=== PATIENT | female | born 1965 | race Caucasian/White ===

== ENCOUNTER → 2019-12-27 12:14 | Outpatient (CLI) | payer BC, SELFPAY ==
--- NOTE | ~2019-12-27 | MM_ITS ---
EXAMINATION: MM screening [facility] BI w juan HISTORY: Screening mammogram TECHNIQUE: Craniocaudal and mediolateral oblique 3-D tomosynthesis images were obtained and synthetic 2-D images were generated. CAD analysis was submitted and interpreted. COMPARISON: 09/06/2018, 08/10/2017, 08/05/2016 bilateral digital screening mammogram examinations BREAST PARENCHYMAL COMPOSITION: There are scattered areas of fibroglandular density. FINDINGS: There is no evidence of suspicious mass, calcification, or architectural distortion to sugg est malignancy in either breast. There has been no suspicious interval change. IMPRESSION: 1. No mammographic evidence of malignancy. 2. Recommend routine screening mammography in one year. BI-RADS Category 1: Negative Reviewed, dictated and finalized at location A.
== END ==
PROVIDERS: Visit Provider Family Medicine
DX: Z12.31 Encounter for screening mammogram for malignant neoplasm of breast (principal)
CPT/HCPCS: 77063; 77067

== ENCOUNTER 2020-11-06 12:55 | Emergency (ER) | payer BC, SELFPAY ==
[2020-11-06 13:15] VITALS: BP 118/66; PULSE 89; RESP 16; TEMP 37.1; O2SAT 97
--- NOTE | 2020-11-06 13:19 | ED.GENADULT ---
HPI - General Adult General Chief complaint: Upper Respiratory Infection Stated complaint: sore throat Time Seen by Provider: 11/06/20 13:15 Source: patient and RN notes reviewed Mode of arrival: ambulatory Limitations: no limitations History of Present Illness HPI narrative: 55-year-old female presents with complaints of burning of throat and white patches for 1 day. Denise reports symptoms started early Wednesday (11/05/20@03:00) morning and continues to increase. Tylenol last this morning at 07:00 with some relief. No high fevers, drooling, neck or throat swelling. Pain is bilateral. Hurts to swallow. Exacerbation factors consist of eating and drinking. No rhinorrhea or nasal congestion. No voice change. No nausea, vomiting, or abdominal pain. Tolerating liquids well. Denies dyspnea, difficulty swallowing, jaw pain, dental pain, facial pain, foreign body sensation, and rash. Remains active. The patient reports she have not been diagnosed with COVID-19. The patient reports she is not waiting for the results of a COVID-19 lab test. The patient reports she do not have chills, weakness, or fatigue. The patient reports she do not have a new or worsening cough or shortness of breath. Denies chest pain. The patient reports she do not have any loss of taste or smell or diarrhea. Denies recent traveling. Denies concerns for COVID-19 or exposures been home with limited outdoor exposure except for essential household needs, work, and return home. At this time, patient is not suspected of having COVID-19. Some parts of this dictation were generated by voice recognition software and may contain typographical and/or grammatical inaccuracies. Related Data Home Medications Medication Instructions Recorded Confirmed cetirizine 10 mg capsule 10 mg PO DAILY 12/05/19 07/26/20 Allergies Allergy/AdvReac Type Severity Reaction Status Date / Time lorcaserin [Belviq] Allergy Unknown intolerant Verified 09/24/20 11:39 Review of Systems Review of Systems: Narrative: CONSTITUTIONAL: Denies fever, chills, sweats. EYES: Denies visual changes, redness, discharge. ENT: Denies rhinorrhea, congestion, otalgia. Complains of burning of throat with white patches. CARDIOVASCULAR: Denies chest pain, palpitations, edema. RESPIRATORY: Denies dyspnea, wheezing, cough. GASTROINTESTINAL: Denies abdominal pain, nausea, vomiting, diarrhea. SKIN: Denies rash or itching. MUSCULOSKELETAL: Denies acute back pain, joint pain, or myalgia. NEUROLOGIC: Denies numbness or focal weakness. PSYCHIATRIC: Denies anxiety or depression. All systems reviewed & are unremarkable except as noted in HPI and below. [facility] Past Medical History Medical History (Updated 11/07/20 @ 00:00 by Nicole Thomas) Broken arm Surgical History Surgical History Hx of cholecystectomy Family History Family History Father Family history of chronic obstructive pulmonary disease Patient's father is , Onset Age: 63 Other Diabetes mellitus Family history of cardiovascular disease Family history of malignant neoplasm of skin Social History Social History (Updated 11/06/20 @ 13:55 by KELSIE Dalton) Smoking status: Former smoker Tobacco type: cigarettes Second hand tobacco smoke exposure: Yes Alcohol intake: current Substance use: never Substance use type: does not use Occupation/Education: occupation Gender identity (if verbalized by the patient): Female Sexual Orientation (if Verbalized by the Patient): Straight or Heterosexual Comments At time of signature, agree with nurse past medical, surgical, social, and family history. There is no relevant family history pertinent to the presenting complaint. Exam Narrative: Exam Narrative: GENERAL: This is a well-nourished, well-developed patient, in no ap
== END 2020-11-06 13:51 | disposition home or self-care (01) ==
PROVIDERS: Emergency Provider Nurse Practitioner Family; PCP Family Medicine
DX: B37.0 Candidal stomatitis (principal); J02.9 Acute pharyngitis, unspecified; Z87.891 Personal history of nicotine dependence
CPT/HCPCS: 87081; 87804; 87880; 99213; G0463

== ENCOUNTER → 2021-01-07 15:22 | Outpatient (CLI) | payer BC, SELFPAY ==
--- NOTE | ~2021-01-07 | MM_ITS ---
EXAMINATION: MM screening chucky BI w juan HISTORY: Screening mammogram TECHNIQUE: Craniocaudal and mediolateral oblique 3-D tomosynthesis images were obtained and synthetic 2-D images were generated. CAD analysis was submitted and interpreted. COMPARISON: 12/27/2019, 09/2018, 08/10/2017 bilateral digital screening mammogram examinations BREAST PARENCHYMAL COMPOSITION: There are scattered areas of fibroglandular density. FINDINGS: Scattered benign calcifications. There is no evidence of suspicious mass, calcification, or architectural distortion to suggest malignancy in either breast. There has been no suspicious interv al change. IMPRESSION: 1. No mammographic evidence of malignancy. 2. Recommend routine screening mammography in one year. BI-RADS Category 1: Negative Reviewed, dictated and finalized at location A.
== END ==
PROVIDERS: PCP Family Medicine; Visit Provider Family Medicine
DX: Z12.31 Encounter for screening mammogram for malignant neoplasm of breast (principal)
CPT/HCPCS: 77063; 77067

== ENCOUNTER → 2021-04-01 15:47 | Outpatient (CLI) | payer BC, SELFPAY ==
--- NOTE | ~2021-04-01 | US_ITS ---
EXAMINATION: US pelvic complete EXAM DATE: 04/01/2021 16:11 INDICATION: N83.209 - Unspecified ovarian cyst, unspecified side . TECHNIQUE: Pelvic transabdominal sonogram was performed. There are multiple grayscale and Doppler im ages available for interpretation. There is no prior study for comparison. FINDINGS: Uterus measures 7.8 x 2.9 x 4.1 cm, and is morphologically normal. Endometrial stripe vy sures 4 mm, within normal limits. There is no free pelvic fluid. Right adnexa: The ovary measures 2.3 x 1.4 x 1.7 cm and is morphologically normal. Ovarian vascular f low confirmed. Left adnexa: The ovary is not identified. There is no adnexal mass. IMPRESSION: 1. Unremarkable pelvic ultrasound exam. Reviewed, dictated and finalized at location A.
--- NOTE | ~2021-04-01 | XR_ITS ---
EXAMINATION: XR lumbar spine 6V w bending DATE: 04/01/2021 16:32 INDICATION: Low back pain TECHNIQUE: Anteroposterior, lateral in neutral, flexion and extension, and bilateral oblique views of the lumbar spine, and cone-down lateral view of the lumbosacral junction were obtained. COMPARISON: CT, 12/05/2014 FINDINGS: Vertebral body alignment is normal. There is no laxity with flexion or extension. There is moderate anterior loss of intervertebral disc space height at L1-2. There is mild loss of interverteb ral disc space height at L5-S1. The vertebral body heights are maintained. There is no fracture. Ther e is moderate bilateral facet osteoarthritis of the lower lumbar spine. Cholecystectomy clips are not ed. The bowel gas pattern is normal. IMPRESSION: 1. Moderate lumbar spondylosis without acute findings. Reviewed, dictated and finalized at location B.
== END ==
PROVIDERS: PCP Family Medicine; Visit Provider Family Medicine
DX: N83.209 Unspecified ovarian cyst, unspecified side (principal); M47.896 Other spondylosis, lumbar region
CPT/HCPCS: 72114; 76856

== ENCOUNTER → 2021-04-10 14:53 | Outpatient (CLI) | payer BC, SELFPAY ==
--- NOTE | ~2021-04-10 | CT_ITS ---
EXAMINATION: CT abdomen pelvis wo con DATE: 04/10/2021 15:08 INDICATION: Intermittent right lower quadrant pain TECHNIQUE: Computed tomography (CT) of the abdomen and pelvis was performed without intravenous contr ast. The dose-length product was 841.35 mGy-cm. Automated exposure control and iterative reconstructi on technique were employed. COMPARISON: CT dated 12/05/2014. FINDINGS: Lung bases are unremarkable. Heart size is normal. No significant pleural or pericardial ef fusion. No significant vascular abnormality. No lymphadenopathy. Status post cholecystectomy. The liver, spleen, pancreas, adrenal glands and kidneys are unremarkable. No hydronephrosis. The appe ndix is normal. Nonobstructive bowel gas pattern. No significant vascular abnormality. No lymphadenop athy. No free air or free fluid. No abnormal pelvic masses or fluid collections. No acute osseous abn ormality. IMPRESSION: 1. No acute abdominal abnormality. No findings to account for patient's symptoms. Reviewed, dictated and finalized at location A. IMPRESSION: 1. No acute abdominal abnormality. No findings to account for patient's symptom s.
== END ==
PROVIDERS: Visit Provider Family Medicine
DX: R10.9 Unspecified abdominal pain (principal)
CPT/HCPCS: 74176

== ENCOUNTER → 2021-09-01 12:44 | Outpatient (CLI) | payer BC, SELFPAY ==
--- NOTE | ~2021-09-01 | XR_ITS ---
EXAMINATION: XR hand RT min 3V DATE: 09/01/2021 13:26 INDICATION: Right hand pain. TECHNIQUE: 3 views of right hand were obtained. COMPARISON: None. FINDINGS: Bone alignment is normal. No fracture. Joint spaces are well maintained. IMPRESSION: 1. Normal right hand. Reviewed, dictated and finalized at location A. [facility] REPRESENTATIVE IMPRESSION: 1. Normal right hand.
== END ==
PROVIDERS: PCP Family Medicine; Visit Provider Physician Assistant
DX: M79.641 Pain in right hand (principal)
CPT/HCPCS: 73130

== ENCOUNTER 2021-09-30 12:45 | Outpatient (CLI) | payer BC, SELFPAY | END 2021-09-30 12:46 | disposition home or self-care (01) | LOC: ANHBWCAUD 12:46 | PROVIDERS: PCP Family Medicine; Visit Provider Family Medicine | DX: H90.3 Sensorineural hearing loss, bilateral (principal) | CPT/HCPCS: 92557; 92567 ==

== ENCOUNTER → 2022-06-01 14:05 | Outpatient (CLI) | payer BC, SELFPAY ==
--- NOTE | ~2022-06-01 | MM_ITS ---
EXAMINATION: MM screening [facility] BI w juan HISTORY: Screening mammogram TECHNIQUE: Craniocaudal and mediolateral oblique 3-D tomosynthesis images were obtained and synthetic 2-D images were generated. CAD analysis was submitted and interpreted. COMPARISON: 01/07/2021, 12/27/2019, 09/06/2018 BREAST PARENCHYMAL COMPOSITION: There are scattered areas of fibroglandular density. FINDINGS: Scattered benign-appearing calcifications are present. There is no suspicious mass, calcifi cation, or architectural distortion to suggest malignancy in either breast. There has been no suspici ous interval change. IMPRESSION: 1. No mammographic evidence of malignancy. 2. Recommend routine screening mammography in one year. BI-RADS Category 2: Benign finding(s). Reviewed, dictated and finalized at location A.
== END ==
PROVIDERS: PCP Family Medicine; Visit Provider Family Medicine
DX: Z12.31 Encounter for screening mammogram for malignant neoplasm of breast (principal)
CPT/HCPCS: 77063; 77067

== ENCOUNTER 2023-01-25 09:39 | Outpatient (CLI) | payer OTHER, SELFPAY ==
--- NOTE | 2023-01-25 09:50 | ECHO_ITS ---
Patient Info Name: Denise Spain Age: 57 years : 1965 Gender: Female Ht: 62 in Wt: 177 lbs BSA: 1.91 m2 HR: 73 bpm BP: 117 / 72 mmHg Technical Quality: Good Exam Date: 01/25/2023 9:57 AM Exam Location: [facility] Patient Status: Outpatient Admit Date: 01/25/2023 Staff Ordering Physician: Ron Nieto DO Yard Cleaner: Pavithra Espinoza RDCS Attending Provider: Ron Nieto DO Referring Physician: Gerson GARNICA; Exam Type: CA echo doppler color flow Study Info Indications R06.09 - Other forms of dyspnea Complete two-dimensional, color flow and Doppler transthoracic echocardiogram is performed. Summary 1. Complete two-dimensional, color flow and Doppler transthoracic echocardiogram is performed. 2. Left ventricular chamber dimension is normal. 3. Left ventricular systolic function is normal, estimated at 60-65%. 4. The left ventricular diastolic function is grade I diastolic dysfunction. 5. E/e' 11 is mildly elevated. 6. Global longitudinal strain is mildly abnormal at -16.7%. 7. No pulmonary hypertension, estimated pulmonary arterial systolic pressure is 30 mmHg. Left Ventricle E/e' 11 is mildly elevated. Global longitudinal strain is mildly abnormal at -16.7%. Left ventricular chamber dimension is normal. Left ventricular systolic function is normal, estimated at 60-65%. The left ventricular diastolic function is grade I diastolic dysfunction. Right Ventricle Right ventricular systolic function is normal and with normal TAPSE 2.0 cm. Right ventricular chamber dimension is normal. Left Atria Left atrial chamber dimension is normal. Right Atria Right atrial chamber dimension is normal. Aortic Valve The aortic valve is trileaflet. There is no aortic valve stenosis. There is trace aortic valve regurgitation. Pulmonic Valve There is no pulmonic regurgitation. Mitral Valve There is no mitral valve stenosis. There is no mitral valve regurgitation. Tricuspid Valve There is no tricuspid valve regurgitation. No pulmonary hypertension, estimated pulmonary arterial systolic pressure is 30 mmHg. Pericardium/Pleural There is no pericardial effusion. Inferior Vena Cava Normal inferior vena cava with >50% collapse upon inspiration consistent with normal right atrial pressure, 5 mmHg. Aorta The aortic root size at the sinus of Valsalva is normal. Left Ventricular Outflow Tract Name Value Normal LVOT 2D LVOT Diameter 1.9 cm LVOT Doppler LVOT Peak Gradient 9 mmHg LVOT Mean Gradient 5 mmHg LVOT VTI 32 cm LVOT VTI/AV VTI Ratio 0.8 LVOT Stroke Volume 86 ml LVOT CO 6.6 l/min LVOT CI 3.4 l/min/m2 Pulmonic Valve Name Value Normal RVOT Doppler
--- NOTE | 2023-01-29 12:21 | WPDHOLTEREM ---
Holter/Event Monitor Holter/Event Monitor Date of procedure: 01/25/23 Holter/Event Procedure: 48 Hr Holter Monitor Indications: Dyspnea Conclusion: 1. 48 hour holter monitor on 01/25/23. 2. Underlying rhythm is sinus rhythm. HR range 65-122 bpm; average HR 85 bpm. 3. There are 33 premature supraventricular complexes, 1 supraventricular couplet and 1 supraventricular triplet. No supraventricular tachycardia. 4. No premature ventricular complexes. No ventricular tachycardia. 5. No sinoatrial or atrioventricular blocks. No significant pauses greater than 2 seconds. 6. Patient reports symptoms of flutter, dizziness, shortness pressure high pulse which demonstrate sinus rhythm, HR range 77-107 bpm.
== END 2023-01-25 09:40 | disposition home or self-care (01) ==
LOC: ANHCARD 09:40
PROVIDERS: PCP Family Medicine; Visit Provider Family Medicine
DX: R00.0 Tachycardia, unspecified (principal); R06.09 Other forms of dyspnea
CPT/HCPCS: 93225; 93226; 93306

== ENCOUNTER → 2023-04-27 13:56 | Outpatient (CLI) | payer OTHER, SELFPAY ==
--- NOTE | ~2023-04-27 | XR_ITS ---
XR knee RT 3V, XR tibia fibula RT 2V 04/27/2023 14:12 (accession [id number]), 04/27/2023 14:11 (accession [id number]) Indication: Status post recent fall. Right knee pain. Procedure: 3 views right knee and 2 views of the right tibia/fibula Comparison: No prior studies for comparison. Findings: Mild osteoarthritis of the patellofemoral joint. No fracture, subluxation or dislocation. N o joint effusion. No foreign bodies. Impression: 1: No acute fracture. Reviewed, dictated and finalized at location A. Impression: 1: No acute fracture. Impression: 1: No acute fracture.
== END ==
PROVIDERS: PCP Family Medicine; Visit Provider Family Medicine
DX: S89.91XA Unspecified injury of right lower leg, initial encounter (principal)
CPT/HCPCS: 73562; 73590

== ENCOUNTER → 2023-05-10 10:59 | Outpatient (CLI) | payer OTHER, SELFPAY ==
--- NOTE | ~2023-05-10 | MR_ITS ---
EXAMINATION: MR knee RT wo con DATE: 05/10/2023 11:34 INDICATION: Unspecified internal derangement of the right knee TECHNIQUE: Magnetic resonance imaging (MRI) of the right knee was performed without intravenous contr ast. Sequences included coronal PD-weighted FSE, coronal PD-weighted FS FSE, sagittal T2-weighted FS E, sagittal PD-weighted FS FSE and axial PD weighted fat saturated FSE. COMPARISON: None. FINDINGS: Medial compartment: Medial meniscus is normal. Articular cartilage is normal. Lateral compartment: Lateral meniscus is normal. Articular cartilage is normal. Patellofemoral compartment: Deep chondral ulceration at the lateral side of the medial patellar facet extending to the apical rid ge. There is linear fluid signal consistent with chondral labral delamination extends 6 mm laterally along the bone chondral interface at the central aspect of the patellar apical ridge where there is m inimal underlying subarticular edema-like signal change. Chondral fissuring without degenerative subc hondral changes at the inferior aspect of the medial trochlea. Ligaments and tendons: Anterior and posterior cruciate ligaments are normal. The medial collateral ligament and fibular yolanda ateral ligament complex are normal. The extensor mechanism is normal. The visualized medial and later al hamstring tendons as well as the iliotibial band are normal. Fluid: Physiologic amount of fluid in the joint space. No loose osteochondral bodies identified. There is a 2.7 x 1.7 x 1.1 cm loculated fluid collection the deep subcutaneous fat overlying along the superfici al fascia of the anterolateral compartment likely representing a small posttraumatic hematoma/seroma given history of pain and bruising at the lateral lower leg post fall 3 1/2 weeks prior. Osseous/other: Normal marrow signal. No fracture or pathologic marrow replacing process. IMPRESSION: 1. 2.7 x 1.7 x 1.1 cm loculated subcutaneous fluid collection anterior to the neck of the proximal fi bula most likely representing a small post traumatic hematoma/seroma. 2. 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 Reviewed, dictated and finalized at location B. IMPRESSION: 1. 2.7 x 1.7 x 1.1 cm loculated subcutaneous fluid collection anterior to the n salina of the proximal fibula most likely representing a small post traumatic sheela jozef/seroma. 2. Mild patellofemoral osteoarthritis with regions of high-grade patellar and m oderate grade trochlear chondromalacia.
== END ==
PROVIDERS: PCP Family Medicine; Visit Provider Family Medicine
DX: M17.11 Unilateral primary osteoarthritis, right knee (principal)
CPT/HCPCS: 73721

== ENCOUNTER 2023-06-01 08:31 | Outpatient (CLI) | payer OTHER, SELFPAY ==
--- NOTE | 2023-06-21 11:28 | WPDSLEEPSTUD ---
Sleep Study Date of Study: 06/01/23 Ordering Provider: Ron Nieto DO Interpreting Physician: Adela Reyes MD Sleep Study Type: Polysomnogram Height: 1.57 m Weight: 79.379 kg Body Mass Index: 32.0 Neck Circumference (inches): 13.5 [place]: 10 Reason for Sleep Study Patient's chief complaint is insomnia and excessive daytime sleepiness. Her physician's chief complaint and reason for the study is memory loss. Sleep History Denise Spain is a 57-year-old female with history of difficulty getting to sleep and staying asleep. She is having a sleep study to determine the cause for insomnia. She takes trazodone and Lunesta to help get to sleep. These medications do not help as much as she would like. She rarely awakens from sleep short of breath. She occasionally awakens at night with heartburn, belching or coughing.??She frequently snores, occasionally snores loudly enough that others complain. She constantly has trouble sleeping when she has a cold. She never wakes suddenly gasping for breath during the night. She never sweats excessively at night. She rarely notices her heart pounding or beating irregularly during the night. She occasionally falls asleep during the day. She never falls asleep while driving. She frequently has daytime difficulties due to excessive sleepiness, she is a accounts payable payroll coordinator.. She never experiences loss of muscle tone with strong emotion. She never feels paralyzed on waking or falling asleep. She occasionally experiences vivid dreams upon waking or falling asleep. She never feels afraid of going to sleep. She occasionally has nightmares. She occasionally recalls her dreams. She never has thoughts racing through her mind. She never feels sad or depressed. She constantly feels anxiety or worry about things. She rarely notices parts of her body jerk. She occasionally kicks during the night. She rarely feels crawling or aching feelings in her legs. She rarely feels leg pain at night. She frequently grinds her teeth at night, never has morning jaw pain. She constantly feels bothered by pain during the day, occasionally is awakened by pain at night. She frequently wakes up feeling stiff in the morning with sore or achy muscles and pain in the neck and spine. She has memory problems, concentration problems fatigue and insomnia. She has had no significant change in her weight during the last year. ? Normal bedtime is around 9:00 p.m. to 10:00 p.m., taking a variable amount of time to fall asleep. She does not report a fixed wake-up time. She does not report to fix number of hours of sleep per night. She does not take naps in the day. A short nap might be refreshing. Habits:??Tobacco: Quit years ago Caffeine: 3 servings per day Alcohol: 3-4 servings per week. Recreational substances: none [facility] Past Medical History Medical History (Updated 06/21/23 @ 11:34 by Adela Reyes MD) Broken arm Insomnia, unspecified Lesion of nasal septum Low back pain Surgical History Surgical History Hx of cholecystectomy Family History Family History Father Family history of chronic obstructive pulmonary disease Other Diabetes mellitus Family history of cardiovascular disease Family history of malignant neoplasm of skin Social History Social History Smoking status: Never smoker Alcohol intake: current Drinks per week: 4 Substance use: never Substance use type: does not use Lack of Transportation: No Lack of Food: Never True Current Housing: I Have Housing Concerned About Future Housing: No Difficulty Paying Gas/Electric Bills: No Difficulty Paying for Meds: No Currently Unemployed: No Education: High School Diploma/GED Difficulty w/ Childcare or Family Care: No Occupation/Education: occupation
[2023-06-21 11:47] VITALS: BMI 32.0
== END 2023-06-02 07:53 | disposition home or self-care (01) ==
LOC: ANHCSM 08:32
PROVIDERS: PCP Family Medicine; Visit Provider Family Medicine
DX: G47.33 Obstructive sleep apnea (adult) (pediatric) (principal); G47.10 Hypersomnia, unspecified
CPT/HCPCS: 95810

== ENCOUNTER 2023-07-07 12:16 | Emergency (ER) | payer OTHER, SELFPAY ==
--- NOTE | ~2023-07-07 | XR_ITS ---
XR chest 2V DATE: 07/07/2023 12:48 INDICATION: Cough, shortness of breath TECHNIQUE: 2 views COMPARISON: 09/16/2018 PA and lateral chest FINDINGS: Normal heart size. No hilar or mediastinal enlargement. No pulmonary infiltrate or consolid ation, pleural effusion or pulmonary vascular congestion or pneumothorax is detected. Surgical clips, right upper quadrant, consistent with cholecystectomy. IMPRESSION: No active cardiopulmonary disease Reviewed, dictated and finalized at location B.
[2023-07-07 12:25] VITALS: BP 95/72; PULSE 99; RESP 16; TEMP 36.6; O2SAT 97
--- NOTE | 2023-07-07 12:36 | ED.URI ---
HPI - URI/Sore Throat General Chief Complaint: Upper Respiratory Infection Stated Complaint: Cough;Chest pain Time Seen by Provider: 07/07/23 12:26 Source: patient and RN notes reviewed History of Present Illness HPI Narrative: Patient is a 57-year-old female who presents to urgent care with complaints of 2-3 weeks of productive cough and postnasal drainage. Patient states she has also had some soreness in the back of her throat, more so on the left side. Patient states that she saw her PCP 2 weeks ago and was on steroids for 5 days. States that her symptoms did have mild improvement. Patient denied of any shortness of breath or chest pain until she choked on a meatball sandwich today. Patient states that she had a coughing fit and had difficulty catching her breath during that time and since then all symptoms have resolved. Patient is currently having no signs of distress, shortness of breath or chest discomfort. Patient has been using mucus relief [id number] and denies any fevers, nausea or vomiting. No other acute complaints. Patient is suggesting that she needs ?more medications for her symptoms?. No acute distress noted. Patient aware of the plan of care. Some parts of this dictation were generated by voice recognition software and may contain typographical and/or grammatical inaccuracies. Related Data Home Medications Medication Instructions Recorded Confirmed cetirizine 10 mg capsule (Zyrtec) 10 mg PO DAILY PRN Allergic 01/05/23 07/07/23 Symptoms Allergies Allergy/AdvReac Type Severity Reaction Status Date / Time lorcaserin [Belviq] Allergy Unknown intolerant Verified 07/07/23 12:40 Review of Systems Review of Systems: CONSTITUTIONAL: Denies fever, chills, or sweats. EYES: Denies visual changes, redness, or discharge. ENT: Denies rhinorrhea, congestion, otalgia. Reports of left-sided sore throat CARDIOVASCULAR: Denies chest pain, palpitations, or edema. RESPIRATORY: Reports of productive cough with episode of choking GASTROINTESTINAL: Denies abdominal pain, nausea, vomiting, or diarrhea. GENITOURINARY: Denies dysuria or hematuria. SKIN: Denies rash or itching. MUSCULOSKELETAL: Denies back pain, joint pain, or myalgia. NEUROLOGIC: Denies headache, numbness, or weakness. All other systems reviewed are negative, except as documented in HPI. [facility] Past Medical History Medical History Broken arm Insomnia, unspecified Lesion of nasal septum Low back pain Surgical History Surgical History Hx of cholecystectomy Family History Family History Father Family history of chronic obstructive pulmonary disease Other Diabetes mellitus Family history of cardiovascular disease Family history of malignant neoplasm of skin Social History Social History Smoking status: Never smoker Alcohol intake: current Drinks per week: 4 Substance use: never Substance use type: does not use Lack of Transportation: No Lack of Food: Never True Current Housing: I Have Housing Concerned About Future Housing: No Difficulty Paying Gas/Electric Bills: No Difficulty Paying for Meds: No Currently Unemployed: No Education: High School Diploma/GED Difficulty w/ Childcare or Family Care: No Occupation/Education: occupation Gender identity (if verbalized by the patient): Female Sexual Orientation (if Verbalized by the Patient): Straight or Heterosexual Comments At the time of my signature, I reviewed and agree with the nursing past medical, surgical, social, and family history. There is no relevant family history pertinent to the patient complaint. Exam Narrative: GENERAL: This is a well-nourished, well-developed patient, in no apparent distress. HEAD: normocep
== END 2023-07-07 13:10 | disposition home or self-care (01) ==
PROVIDERS: Emergency Provider Nurse Practitioner Family; PCP Family Medicine
DX: J06.9 Acute upper respiratory infection, unspecified (principal)
CPT/HCPCS: 71046; 99213; G0463

== ENCOUNTER → 2023-08-04 12:04 | Outpatient (CLI) | payer OTHER, SELFPAY ==
--- NOTE | ~2023-08-04 | XR_ITS ---
EXAMINATION: XR hip LT min 2V DATE: 08/04/2023 12:20 INDICATION: Left hip pain. TECHNIQUE: 2 views of left hip were obtained. COMPARISON: Left hip radiographs 01/14/2016 FINDINGS: Bone alignment is normal. No fracture. There is mild left hip osteoarthritis. IMPRESSION: 1. Mild left hip osteoarthritis. Reviewed, dictated and finalized at location E.
== END ==
PROVIDERS: PCP Family Medicine; Visit Provider Family Medicine
DX: M16.12 Unilateral primary osteoarthritis, left hip (principal)
CPT/HCPCS: 73502

== ENCOUNTER 2023-08-13 12:06 | Outpatient (CLI) | payer OTHER, SELFPAY ==
--- NOTE | ~2023-08-13 | XR_ITS ---
EXAMINATION: XR lumbar spine min 4V DATE: 08/13/2023 12:20 INDICATION: Low back pain TECHNIQUE: Anteroposterior, lateral, and bilateral oblique views of the lumbar spine, and cone-down l ateral view of the lumbosacral junction were obtained. COMPARISON: 04/01/2021 FINDINGS: Bone alignment is normal. There is no fracture. Again noted is moderate anterior loss of in tervertebral disc space height at L1-2. Small degenerative osteophytes project from the anterior endp lates of multiple vertebral bodies. There is mild to moderate facet joint osteoarthritis. Cholecystec jai clips are noted. A moderate volume of colonic stool is present. IMPRESSION: 1. Moderate lumbar spondylosis without acute findings or significant interval change. Reviewed, dictated and finalized at location B. CAL STRING MAKER IMPRESSION: 1. Moderate lumbar spondylosis without acute findings or significant interval ken white
== END 2023-08-13 12:07 | disposition home or self-care (01) ==
PROVIDERS: PCP Family Medicine; Visit Provider Family Medicine
DX: M54.50 Low back pain, unspecified (principal); M47.816 Spondylosis without myelopathy or radiculopathy, lumbar region
CPT/HCPCS: 72110

== ENCOUNTER 2023-12-03 08:24 | Outpatient (CLI) | payer OTHER, SELFPAY ==
[2023-12-03 18:56] LABS: Basophils Absolute Auto 0.1 K/mm3 (0.0-0.1); Basophils Percent Auto 0.7 % (0.2-1.2); Eosinophils Absolute Auto 0.1 K/mm3 (0-0.3); Eosinophils Percent Auto 1.1 % (0-4.4); Hematocrit 42.7 % (37.0-47.0); Hemoglobin 13.7 g/dL (12.0-15.0); Immature Granulocyte Absolute 0.02 K/mm3 (0.00-0.031); Immature Granulocyte Percent A 0.3 % (0-0.5); Lymphocytes Absolute Auto 1.99 K/mm3 (0.9-3.2); Lymphocytes Percent Auto 26.7 % (18.3-44.2); Mean Corpuscular HGB Conc 32.1 g/dl (32-36); Mean Corpuscular Hemoglobin 29.7 pg (26-34); Mean Corpuscular Volume 92.4 fl (80-100); Mean Platelet Volume 9.9 fl (7.4-10.4); Monocytes Absolute Auto 0.6 K/mm3 (0.1-0.6); Monocytes Percent Auto 7.4 % (2.6-8.5); Neutrophils Absolute Auto 4.8 K/mm3 (1.3-6.7); Neutrophils Percent Auto 63.8 % (45.5-73.1); Platelet Count Result 241 k/mm3 (150-375); Red Blood Count 4.62 M/mm3 (4.2-5.4); Red Cell Distribution Width 12.4 % (11.5-14.5); White Blood Count 7.5 K/mm3 (4.5-10.0)
[2023-12-03 19:25] LABS: Vitamin D 25 Hydroxy 29.2 ng/mL
[2023-12-03 19:27] LABS: Alanine Aminotransferase 29 U/L (6-35); Albumin Level 4.2 g/dL (3.5-5.1); Alkaline Phosphatase 82 U/L (38-126); Anion Gap 4 mmol/L (8-16); Aspartate Amino Transferase 37 U/L (14-36); Bilirubin,Total 0.7 mg/dL (0.2-1.3); Blood Urea Nitrogen 14 mg/dL (7-17); Calcium 9.3 mg/dL (8.4-10.2); Carbon Dioxide 29 mmol/L (22-30); Chloride 105 mmol/L (98-107); Cholesterol 217 mg/dL (0-200); Estimated Glomerular Filt Rate > 60; Glucose 99 mg/dL (65-110); HDL Direct 41 mg/dL; Lipase 72 U/L (23-300); Potassium 4.1 mmol/L (3.4-5.0); Sodium 138 mmol/L (137-145); Triglycerides 304 mg/dL (<150)
[2023-12-03 19:38] LABS: LDL Cholesterol Direct 127 mg/dL
[2023-12-03 19:44] LABS: Hemoglobin A1C 5.5 % (<5.7)
[2023-12-03 20:17] LABS: Vitamin B12 > 1000.0 pg/mL (239-931)
== END 2023-12-03 08:25 | disposition home or self-care (01) ==
LOC: ANHGOSHLAB 08:25
PROVIDERS: PCP Family Medicine; Visit Provider Emergency Medicine
DX: E66.9 Obesity, unspecified (principal); R10.12 Left upper quadrant pain; R53.83 Other fatigue; R42 Dizziness and giddiness
CPT/HCPCS: 36415; 80053; 80061; 82306; 82607; 83036; 83690; 84443; 85025

== ENCOUNTER 2024-01-28 15:05 | Outpatient (CLI) | payer OTHER, SELFPAY ==
[2024-01-28 19:22] LABS: Vitamin D 25 Hydroxy 32.1 ng/mL
== END 2024-01-28 15:06 | disposition home or self-care (01) ==
LOC: ANHGOSHLAB 15:07
PROVIDERS: PCP Family Medicine; Visit Provider Nurse Practitioner
DX: E55.9 Vitamin D deficiency, unspecified (principal)
CPT/HCPCS: 36415; 82306

== ENCOUNTER 2024-05-16 14:37 | Outpatient (CLI) | payer OTHER, SELFPAY ==
--- NOTE | 2024-05-16 14:43 | ECHO_ITS ---
Patient Info Name: Denise Spain Age: 58 years : 1965 Gender: Female Ht: 63 in Wt: 175 lbs BSA: 1.91 m2 HR: 80 bpm BP: 131 / 71 mmHg Heart Rhythm: Sinus Rhythm Technical Quality: Fair Exam Date: 05/16/2024 2:51 PM Exam Location: Echo Lab Patient Status: Outpatient Admit Date: 05/16/2024 Staff Ordering Physician: Ron Nieto DO Renewable Energy Broker: Malaika Harris RDCS Attending Provider: Ron Nieto DO Referring Physician: Gerson GARNICA; Exam Type: CA echo doppler color flow Study Info Indications R01.1 - Cardiac murmur, unspecified Complete two-dimensional, color flow and Doppler transthoracic echocardiogram is performed. Summary 1. Complete two-dimensional, color flow and Doppler transthoracic echocardiogram is performed. 2. Left ventricular chamber dimension is normal. 3. Left ventricular systolic function is normal, estimated at 60-65%. 4. The left ventricular diastolic function is grade I diastolic dysfunction. 5. E/e' 10 is mildly elevated. 6. There is mild aortic valve sclerosis. 7. There is mild aortic valve regurgitation. 8. No pulmonary hypertension, estimated pulmonary arterial systolic pressure is 25 mmHg. Left Ventricle E/e' 10 is mildly elevated. Left ventricular chamber dimension is normal. Left ventricular systolic function is normal, estimated at 60-65%. The left ventricular diastolic function is grade I diastolic dysfunction. Right Ventricle Right ventricular systolic function is normal and with normal TAPSE 2.1 cm. Right ventricular chamber dimension is normal. Left Atria Left atrial chamber dimension is normal. Right Atria Right atrial chamber dimension is normal. Aortic Valve The aortic valve is trileaflet. There is mild aortic valve sclerosis. There is no aortic valve stenosis. There is mild aortic valve regurgitation. Pulmonic Valve There is no pulmonic regurgitation. Mitral Valve There is no mitral valve stenosis. There is no mitral valve regurgitation. Tricuspid Valve There is no tricuspid valve regurgitation. No pulmonary hypertension, estimated pulmonary arterial systolic pressure is 25 mmHg. Pericardium/Pleural There is no pericardial effusion. Inferior Vena Cava Normal inferior vena cava with >50% collapse upon inspiration consistent with normal right atrial pressure, 5 mmHg. Aorta The aortic root size at the sinus of Valsalva is normal. Left Ventricular Outflow Tract Name Value Normal LVOT 2D LVOT Diameter 2.0 cm LVOT Doppler LVOT Peak Gradient 9 mmHg LVOT Mean Gradient 5 mmHg LVOT VTI 29 cm LVOT VTI/AV VTI Ratio 0.9 LVOT Stroke Volume 92 ml LVOT CO 6.0 l/min LVOT CI 3.1 l/min/m2 Pulmonic Valve Name Value Normal RVOT Doppler RVOT Peak Gradient
== END 2024-05-16 14:38 | disposition home or self-care (01) ==
PROVIDERS: PCP Family Medicine; Visit Provider Family Medicine
DX: I51.89 Other ill-defined heart diseases (principal); I35.8 Other nonrheumatic aortic valve disorders; I35.1 Nonrheumatic aortic (valve) insufficiency
CPT/HCPCS: 93306

== ENCOUNTER 2024-06-13 15:12 | Outpatient (CLI) | payer OTHER, SELFPAY ==
--- NOTE | ~2024-06-13 | MM_ITS ---
EXAMINATION: MM screening [facility] BI w juan HISTORY: Screening mammogram TECHNIQUE: Craniocaudal and mediolateral oblique 3-D tomosynthesis images were obtained and synthetic 2-D images were generated. CAD analysis was submitted and interpreted. COMPARISON: 06/01/2022, 01/07/2021, 12/27/2019 BREAST PARENCHYMAL COMPOSITION:Not Dense. There are scattered areas of fibroglandular density. FINDINGS: No suspicious mass, calcification, or architectural distortion are identified in either rama ast to suggest malignancy. There has been no suspicious interval change. IMPRESSION: No mammographic evidence of malignancy. Recommend routine screening mammography in one year. BI-RADS Category 1: Negative Reviewed, dictated and finalized at location .
== END 2024-06-13 15:13 | disposition home or self-care (01) ==
LOC: MICIMG 15:13
PROVIDERS: PCP Family Medicine; Visit Provider Nurse Practitioner
DX: Z12.31 Encounter for screening mammogram for malignant neoplasm of breast (principal)
CPT/HCPCS: 77063; 77067

== ENCOUNTER 2025-01-31 07:48 | Outpatient (CLI) | payer OTHER, SELFPAY ==
--- OUTSIDE RECORDS SUMMARY | 2025-01-31 07:51 | XMS_ITS | Clinical Summary ---
Author Organization [facility] Address [address] [place] [id number] Care Team Providers Care Cream Cheese Maker Name Role Phone Ron Nieto DO Primary Care Provider Allergies No known active allergies Medications PREMPRO 0.625-5 MG tablet Take 1 tablet by mouth daily. 1 Active traZODone 50 MG tablet TAKE 2 TABLETS BY MOUTH EVERY NIGHT AT BEDTIME FOR INSOMNIA 1 Active ondansetron (ZOFRAN-ODT) 4 MG disintegrating tablet Take 1 tablet (4 mg total) by mouth every 8 (eight) hours as needed for Nausea. 20 tablet 4 Active Active Problems Problem Noted Date Diagnosed Date Closed displaced fracture of fifth metatarsal bone of right foot 05/02/2021 Overview (05/26/2021): 04/28/2021 Assessment & Plan (08/03/2021 12:23 PM CDT): Increase activities as tolerated. Follow-up as needed. Assessment & Plan (06/26/2021 8:25 PM CDT): Slowly improving. Progressive increase range of motion and strengthening. Follow-up in 1 month for repeat evaluation and x-ray. Assessment & Plan (06/03/2021 4:05 PM CDT): Discontinue boot. May wear hard sole shoes. Return for follow up with repeat xray in 4 weeks. Assessment & Plan (05/26/2021 8:06 AM CDT): Patient still continues to complain of pain. Patient still not 1 month from fracture. Question whether or not she wants to have this fixed. Again, we discussed the fact that this is minimally displaced with 2 mm or less of step-off and gap. I do not see a need for surgical intervention at this time. However we did discuss the risks, benefits and alternatives including not limited to infection, neurovascular compromise, stiffness, persistent pain, need for further surgery, symptomatic hardware, nonunion, malunion, hardware failure, painful scar tissue and DVT and PE. All questions were answered. Follow-up in 2 weeks for repeat evaluation and x- ray Assessment & Plan (05/02/2021 8:30 AM CDT): We discussed the risks, benefits and alternatives. Step-off measures approximately 2 mm. By definition might consider surgical intervention. We discussed the risks including but not limited to infection, neurovascular compromise, stiffness, persistent pain, need for further surgery, hardware failure, symptomatic hardware, DVT and PE. At this point in time we will watch her for 2 more weeks. Follow-up in 2 weeks for repeat evaluation and x-ray. If there is further displacement consider open reduction internal fixation. Otherwise continue with conservative treatment. Fall on concrete 05/02/2021 Assessment & Plan (05/02/2021 8:31 AM CDT): 04/28/2021 rolled ankle over concrete with immediate pain, heard the fracture and followed up in the emergency room Metatarsal fracture 05/02/2021 Family History Medical History Relation Comments Valve Disease Father Cancer Paternal Aunt Liver Disease Paternal Uncle Relation Status Comments Father Paternal Aunt Other colon cancer Paternal Uncle Social History Tobacco Use Types Packs/Day Years Used Date Smoking Tobacco: Never Smokeless Tobacco: Never Alcohol Use Standard Drinks/Week Comments Yes 0 (1 standard drink = 0.6 oz pur e alcohol) socially Comments No Sex and Gender Information Value Date Recorded Sex Assigned at Not on file Legal Sex Female 5:43 PM CDT Gender Identity Not on file Sexual Orientation Not on file Last Filed Vital Signs Vital Sign Reading Time Taken Comments Blood Pressure 127/70 02/01/2024 9:00 AM CDT Pulse 88 02/01/2024 9:00 AM CDT Temperature 36.8 C (98.3 F) 02/01/2024 9:00 AM CDT Respiratory Rate 18 02/01/2024 9:00 AM CDT Oxygen Saturation 95% 02/01/2024 9:00 AM CDT Inhaled Oxygen Concentration - - Weight 81.6 kg (180 lb) 02/01/2024 7:05 AM CDT Height 157.5 cm (5' 2 ) 02/01/2024 7:05 AM CDT Body Mass Index 32.92 02/01/2024 7:05 AM CDT Plan of Treatment Health Maintenance Due Date Last Done Comments Cervical Cancer Screening Pa p Smear (Age 30 to 64) Every 3 Years 1965 Colorectal Cancer Screening Colonoscopy (10 Years) 1967 Annual Physical 1970 Hepatitis C 1985 DTaP, Tdap and Td Vaccines ( 1 - Tdap) 1986 Hepatitis B Vaccines (1 of 3 - 19+ 3-dose series) 1986 Cervical Cancer Screening Pa p with HPV Testing (Age 30 to 64) Every 5 Years 1997 Cervical Cancer Screening with HPV 1997 Mammogram Screening 2007 Pneumococcal Vaccine: 50+ Ye ars (1 of 1 - PCV) 2017 Zoster Vaccines (1 of 2) 2017 COVID-19 Vaccine (1 - 2023-2 5 season) 2024 Meningococcal B Vaccine Aged Out No l onger eligible based on patient's age to complete this topic Meningococcal Vaccine Aged Out No no eloisa eligible based on patient's age to complete this topic RSV Immunizations Under 20 Months Aged Out No longer eligible based on patient's age to complete this topic Care Teams Cream Cheese Maker Relationship Specialty Start Date End Date Ron Nieto DO [facility] [address] [address] PCP - General FAMILY PRACTICE 02/01/24
--- OUTSIDE RECORDS SUMMARY | 2025-01-31 07:51 | XMS_ITS | Referral Summary ---
Author Organization [facility] Address [address] [place] [address] Phone Care Team Providers Care Pharmacy Affairs Assistant Name Role Phone Ron Nieto Primary Care Provider [phone] Solo Loera MD Unavailable Allergies No known active allergies Medications Prempro 0.625-5 mg per tablet TK 1 T PO D 0 Active phentermine (ADIPEX-P) 37.5 mg tablet TK 1 T PO D 0 Active FLUoxetine (PROzac) 40 mg capsule Take 1 capsule (40 mg total) by mouth daily 3 Active traZODone (DESYREL) 50 mg tablet Take 2 tablets (100 mg total) by mouth nightly 1 Active eszopiclone (LUNESTA) 3 mg tablet Take 1 tablet (3 mg total) by mouth nightly 1 Active ibuprofen (ADVIL,MOTRIN) 400 mg tablet Take 1.5 tablets (600 mg total) by mouth 3 (three) times a day Active esomeprazole DR (NexIUM) 20 mg capsule Take 1 capsule (20 mg total) by mouth daily before breakfast Active Active Problems Problem Noted Date Diagnosed Date Hemorrhoid 03/26/2020 Social History Tobacco Use Types Packs/Day Years Used Date Smoking Tobacco: Never Personal Safety Answer Date Recorded Getting School Help Needed Not on file 10/09 Comments Unknown Sex and Gender Information Value Date Recorded Sex Assigned at Not on file Legal Sex Female 2:12 PM INTEGRATION MANAGER Gender Identity Not on file Sexual Orientation Not on file Last Filed Vital Signs Vital Sign Reading Time Taken Comments Blood Pressure 119/68 05/12/2023 1:21 PM CDT Pulse 75 05/12/2023 1:21 PM CDT Temperature 36.7 C (98.1 F) 03/26/2020 9:53 AM CDT Respiratory Rate - - Oxygen Saturation - - Inhaled Oxygen Concentration - - Weight 80.3 kg (177 lb) 05/12/2023 1:21 PM CDT Height 172.7 cm (5' 8 ) 05/12/2023 1:21 PM CDT Body Mass Index 26.91 05/12/2023 1:21 PM CDT Plan of Treatment Not on file Insurance [facility] CHOICE PLUS [employer] [facility] CHO[facility] PLUS Care Teams Pharmacy Affairs Assistant Relationship Specialty Start Date End Date Ron Nieto DO PCP - General Family Medicine 03/19/23 Solo Loera MD [address] [place] [address] Family Medicine 08/14/22
--- OUTSIDE RECORDS SUMMARY | 2025-01-31 07:51 | XMS_ITS | Clinical Summary ---
Author Organization [facility] Address [address] [place] [address] Phone Care Team Providers Care Software Development Project Manager Name Role Phone Ron Nieto Primary Care Provider [phone] Solo Loera MD Unavailable Allergies No known [...] Problem Noted Date Diagnosed Date Hemorrhoid 03/26/2020 Surgical History Surgery Date Site/Laterality Comments GALLBLADDER SURGERY 10/04/1994 - 10/03/1995 COLONOSCOPY 10/04/2017 - 10/03/2018 ARM SURGERY 10/04/1986 - 10/03/1987 Family History Medical History Relation Name Comments Memory loss Mother Relation Name Status Comments Mother Social History Tobacco Use Types Packs/Day Years Used Date Smoking Tobacco: Never Personal Safety Answer Date Recorded Getting School Help Needed Not on file 10/09 Comments Unknown Sex and Gender Information Value Date Recorded Sex Assigned at Not on file Legal Sex Female 2:12 PM OFFICE PROFESSIONALS Gender Identity Not on file Sexual Orientation Not on file Obstetrics History Last Filed Vital Signs Vital Sign Reading [...] 05/12/2023 1:21 PM CDT Plan of Treatment Health Maintenance Due Date Last Done Comments Breast Cancer Screening-Mammogram 1965 Cervical Cancer Screening 1965 Colon Cancer Screening-Colonoscopy 1967 Depression Screening 1967 Hepatitis C Screening 1967 DTaP/Tdap/Td Vaccine (1 - Tdap) 1978 Hepatitis B Screening 1985 Regular Well Visit/Exam 18-64 1985 Zoster Vaccine (1 of 2) 2017 Influenza Vaccine (Season Ended) 2025 Pneumococcal vaccine <65 Aged Out No longer eligible based on patient's age to complete this topic Insurance [facility] CHOICE PLUS [facility] HMO/PPO Address: [address] [address] [place] [address] [facility] [place] [facility] CHOICE PLUS [facility] HMO/PPO Address: [address] [address] [place] [address] Care Teams Software Development Project Manager Relationship Specialty Start Date End Date Ron Nieto DO PCP - General Family Medicine 03/19/23 Solo Loera MD [address] [place] [address] Family Medicine 08/14/22
[2025-01-31 08:48] LABS: Influenza A QL RT-PCR Negative (Negative); Influenza B QL RT-PCR Negative (Negative); RSV RNA, RT-PCR Negative (Negative); SARS-CoV-2 RNA PCR Negative (Negative)
== END 2025-01-31 07:49 | disposition home or self-care (01) ==
PROVIDERS: PCP Nurse Practitioner Family; Visit Provider Nurse Practitioner Family
DX: J02.9 Acute pharyngitis, unspecified (principal)
CPT/HCPCS: 87637

== ENCOUNTER 2025-02-08 14:11 | Outpatient (CLI) | payer OTHER, SELFPAY ==
--- NOTE | ~2025-02-08 | XR_ITS ---
EXAMINATION: XR chest 2V 02/08/2025 14:29 INDICATION: Cough PROCEDURE: 2 view chest COMPARISON: 09/26/2008 FINDINGS: The lungs are clear. The cardiomediastinal silhouette is within normal limits. There are no pleural effusions. There is no pneumothorax suspected. IMPRESSION: 1: NO ACUTE CARDIOPULMONARY DISEASE. Reviewed, dictated and finalized at location A.
--- NOTE | ~2025-02-08 | US_ITS ---
Thyroid ultrasound. Clinical History: Nontoxic goiter Findings: Real-time sonography of the thyroid gland was performed. The right lobe measures 2.6 x 0.9 x 1.0 cm. The left lobe measures 3.3 x 0.8 x 1.3 cm. The isthmus is 2 mm in AP diameter. Thyroid parenchyma is homogeneous. No nodule seen. Impression: Small homogeneous thyroid gland. No thyroid nodule.. Reviewed, dictated and finalized at location . Impression: Small homogeneous thyroid gland. No thyroid nodule..
== END 2025-02-08 14:12 | disposition home or self-care (01) ==
LOC: MICIMG 14:12
PROVIDERS: PCP Nurse Practitioner Family; Visit Provider Nurse Practitioner Family
DX: R05.9 Cough, unspecified (principal); E04.9 Nontoxic goiter, unspecified
CPT/HCPCS: 71046; 76536

== ENCOUNTER 2025-04-26 14:12 | Outpatient (CLI) | payer OTHER, SELFPAY ==
--- NOTE | ~2025-04-26 | DEXA_ITS ---
Bone Density Report Name: BLANCA RENTERIA Age: 59 Sex: Female Ethnicity: White Date of : 1965 Indication: postmenopausal; screening for osteoporosis; Referring Provider: BRIAN WHALEY Study: Bone densitometry was performed. Exam Date: April 26, 2025 Accession number: [id number] Bone Density: Region BMD T-score Z-score Classification AP Spine(L1-L4) 1.146 0.9 2.1 Normal Femoral Neck (Left) 0.949 0.9 2.1 Normal Total Hip (Left) 1.053 0.9 1.7 Normal Femoral Neck (Right) 0.948 0.9 2.1 Normal Total Hip (Right) 1.106 1.3 2.2 Normal Total Hip Mean 1.079 1.1 2.0 Normal World Health Organization criteria for BMD impression classify patients as: Normal (T-score at or above -1.0), Osteopenia (T-score between -1.0 and -2.5), or Osteoporosis (T-score at or below -2.5). 10-year Fracture Risk: FRAX not reported because: All T-scores for Spine Total, Hip Total, Femoral Neck at or above -1.0 Clinical Information Provided by Patient: Has used the following medications: HRT (i.e. estrogen/hormone therapy) Patient maximum height was 62 Menopause Age: 52 No regular weight bearing exercise Does not regularly consume dairy products Drinks caffeinated beverages Onset of menses at age 14 Number of children 1 Impression: The patient has normal bone mass. Discussion: LOW RISK OF FRACTURE; BONE DENSITY IS WELL ABOVE THE MINIMUM DESIRABLE LEVEL AND ABOVE AVERAGE FOR AGE AND SEX AT ALL SKELETAL SITES TESTED. This person's bone density is above expected limits for age and sex. This is rarely clinically significant, but should be pursued if there are significant musculoskeletal complaints. The patient should follow a healthful lifestyle (good nutrition with adequate calcium and vitamin D, and appropriate weight-bearing exercise). Follow-Up: Consider repeating this study in 5 years or sooner if there is some new clinical indication. Reported by: WINNIE on 04/26/2025 2:38:00 PM. Reviewed, dictated and finalized at location A.
== END 2025-04-26 14:13 | disposition home or self-care (01) ==
LOC: MICIMG 14:13
PROVIDERS: PCP Nurse Practitioner Family; Visit Provider Obstetrics & Gynecology Gynecology
DX: Z13.820 Encounter for screening for osteoporosis (principal)
CPT/HCPCS: 77080

== ENCOUNTER 2025-05-08 14:31 | Outpatient (CLI) | payer OTHER, SELFPAY ==
--- OUTSIDE RECORDS SUMMARY | 2025-05-08 14:35 | XMS_ITS | Clinical Summary ---
Author Organization [facility] Address [address] [place] [address] Phone Care Team Providers Care Leather Goods Sales Representative Name Role Phone Ron Nieto Primary Care Provider [phone] Solo Loera MD Unavailable Allergies No known [...] on file Legal Sex Female 2:12 PM GRINDER HARDBOARD Gender Identity Not on file Sexual Orientation [...] 1:21 PM CDT Height 172.7 cm (5' 8) 05/12/2023 1:21 PM CDT Body Mass Index [...] Vaccine (1 of 2) 2017 Influenza Vaccine (#1) 2025 Pneumococcal vaccine <65 Aged Out No longer eligible based on patient's age to complete this topic Insurance [facility] CHOICE PLUS [facility] [place] [facility] CHOICE PLUS Care Teams Leather Goods Sales Representative Relationship Specialty Start Date End Date Ron Nieto DO PCP - General Family Medicine 03/19/23 Solo Loera MD [address] [place] [address] Family Medicine 08/14/22
--- OUTSIDE RECORDS SUMMARY | 2025-05-08 14:35 | XMS_ITS | Referral Summary ---
Author Organization [facility] Address [address] [place] [address] Phone Care Team Providers Care Manager Assisted Living Name Role Phone Ron Nieto Primary Care Provider [phone] Solo Loera MD Unavailable Allergies No known [...] on file Legal Sex Female 2:12 PM NECK FITTER Gender Identity Not on file Sexual Orientation [...] Plan of Treatment Not on file Insurance [facility]PPO Address: [address] [address] [place] [address] [facility] CHOICE PLUS [facility] H[facility]/PPO Address: [address] [address] [place] [address] Care Teams Manager Assisted Living Relationship Specialty Start Date End Date Ron Nieto DO PCP - General Family Medicine 03/19/23 Solo Loera MD [address] [place] [address] Family Medicine 08/14/22
--- OUTSIDE RECORDS SUMMARY | 2025-05-08 14:35 | XMS_ITS | Clinical Summary ---
Author Organization [facility] Address [facility] [place] [address] Care Team Providers Care Applied Statistician Name Role Phone Tanvi Fernandezie TAY Primary Care Provider [phone] Allergies No known active allergies Medications PREMPRO 0.625-5 MG tablet Take 1 tablet by mouth daily. 04/19/2021 Active traZODone 50 MG tablet TAKE 2 TABLETS BY MOUTH EVERY NIGHT AT BEDTIME FOR INSOMNIA 04/17/2021 Active eszopiclone (LUNESTA) 1 MG tablet Take 1 tablet (1 mg total) by mouth nightly at bedtime. at bedtime. Active levocetirizine (XYZAL ALLERGY 24HR) 5 MG tablet Take 1 tablet (5 mg total) by mouth. Active SYMBICORT 160-4.5 MCG/ACT inhaler Inhale 2 puffs into the lungs every 12 (twelve) hours as needed (wheezing). 01/23/2025 Active propranolol (INDERAL) 20 MG tablet TAKE A MAXIMUM OF 3 TABLETS BY MOUTH PER DOSE UP TO FOUR TIMES DAILY NEEDED FOR ANXIETY 11/03/2024 Active sertraline (ZOLOFT) 100 MG tablet Take 1 tablet (100 mg total) by mouth daily. 01/23/2025 Active pantoprazole EC (PROTONIX) 40 MG tablet Take 1 tablet (40 mg total) by mouth daily. 30 tablet 02/27/2025 Active tiotropium (SPIRIVA) [address] 1 capsule (18 mcg total) into inhaler and inhale daily. 30 capsule 02/26/2025 Active azithromycin (ZITHROMAX) 500 mg tablet Take 1 tablet (500 mg total) by mouth daily. 7 tablet 02/26/2025 Active Active Problems Problem Noted Date Diagnosed Date Acute respiratory failure ([facility]) 02/02 Closed displaced fracture of fifth metatarsal bone [...] in the emergency room Metatarsal fracture 05/02/2021 Encounters Date Type Department Care Team Description 02/24/2025 11:45 PM CDT - 02/26/2025 12:34 PM CDT Hospital Encounter [facility] Med/Surg [address] [place] [address] Aaliyah Ramirez MD Ojulari, MD Jose Roberto Almazan Michael, MD Littlejohn, Cecile Caceres, MIKE Morris, Seble Almazan, INTERVENTION SPECIALIST URI (URI for weeks per patient, headache, coughing, ) Discharge Disposition: Home or Self Care (Routine Discharge) 02/24/2025 Travel from Last 3 Months Family History Medical History Relation Comments Valve Disease Father Cancer Paternal Aunt Liver Disease Paternal Uncle Relation Status Comments Father Paternal Aunt Other colon cancer Paternal Uncle Social History Tobacco Use Types Packs/Day Years Used Date Smoking Tobacco: Former Cigarettes 0.5 15.6 S tarted: 2009 Smokeless Tobacco: Never Tobacco Cessation:Counseling Given: Not Answered Alcohol Use Standard Drinks/Week Comments Yes 0 (1 standard drink = 0.6 oz pur e alcohol) socially [id number] Health Literacy Answer Date Recor ded How often do you need to hav e someone help you when you read instructions, pamphlets, or other written material from your doctor or pharmacy? Never 02/25/2025 [facility] Utilities Answer Date Recorded In the past 12 months has e [employer], gas, oil, or water [employer] [place] threatened to shut off services in your home? No 02/25/2025 Humiliation, Afraid, Rape, and Kick questionnair e Answer Date Recorded Within the last year, have y ou been afraid of your partner or ex-partner? No 02/25/2025 Within the last year, have y ou been humiliated or emotionally abused in other ways by your partner or ex-partner? No Within the last year, have y ou been kicked, hit, slapped, or otherwise physically hurt by your partner or ex-partner? No 02/25/2025 Within the last year, have y ou been raped or forced to have any kind of sexual activity by your partner or ex-partner? No 02/25/2025 Social Connection and Isolat ion Panel [NHANES] Answer Date Recorded In a typical week, how many times do you talk on the phone with family, friends, or neighbors? More than three times a week 02/25/2025 How often do you get togethe r with friends or relatives? Twice a week 02/25/2025 How often do you attend chur or bahai services? More than 4 times per year 02/25/2025 Do you belong to any clubs o r organizations such as mandaeism groups, unions, fraternal or athletic groups, or school groups? Yes 02/25/2025 How often do you attend meet ings of the clubs or organizations you belong to? More than 4 times per year 02/25/2025 Are you , , di vorced, , never , or living with a partner? 02/25/2025 AUDIT-C Answer Date Recorded Q1: How often do you have a drink containing alc ohol? 2-4 times a month 02/25/2025 Q2: How many drinks containi ng alcohol do you have on a typical day when you are drinking? 3 or 4 02/25/2025 Q3: How often do you have si x or more drinks on one occasion? Less than monthly 02/25/2025 Overall Financial Resource Strain (CARDIA) Answe r Date Recorded How hard is it for you to pa y for the very basics like food, housing, medical care, and heating? Not hard at all 02/25/2025 [facility] Occupat ional Health - Occupational Stress Questionnaire Answer Date Recorded Do you feel stress - tense, restless, nervous, or anxious, or unable to sleep at night because your mind is troubled all the time - these days? Not at all 02/25/2025 Exercise Vital Sign Answer Date Recorde d On average, how many days pe r week do you engage in moderate to strenuous exercise (like a brisk walk)? 2 days 02/25/2025 On average, how many minutes do you engage in exercise at this level? 30 min 02/25/2025 Hunger Vital Sign Answer Date Recorded Within the past 12 months, y ou worried that your food would run out before you got the money to buy more. Never true 02/26/20 Within the past 12 months, t he food you bought just didn't last and you didn't have money to get more. Never true 02/25/2025 PRAPARE - Transportation Answer Date Re corded In the past 12 months, has l ack of transportation kept you from medical appointments or from getting medications? No 02/02 In the past 12 months, has l ack of transportation kept you from meetings, work, or from getting things needed for daily living? No 02/25/2025 Housing Stability Vital Sign Answer Jeremi e Recorded In the last 12 months, was t here a time when you were not able to pay the mortgage or rent on time? Yes 02/25/2025 In the past 12 months, how m any times have you moved where you were living? 0 02/25/2025 At any time in the past 12 m [facility], were you homeless or living in a senior living (including now)? No 02/25/2025 Comments No Sex and Gender Information Value Date Recorded Sex Assigned at Female 02/24/2025 11:55 PM CDT Legal Sex Female 5:43 PM CDT Gender Identity Female 02/24/2025 11:55 PM CDT Sexual Orientation Straight 02/24/2025 11 :55 PM CDT Last Filed Vital Signs Vital Sign Reading Time Taken Comments Blood Pressure 115/53 02/26/2025 7:42 AM CDT Pulse 73 02/26/2025 7:42 AM CDT Temperature 36.1 C (97 F) 02/26/2025 7:42 AM CDT Respiratory Rate 14 02/26/2025 7:42 AM CDT Oxygen Saturation 99% 02/26/2025 8:08 AM CDT Inhaled Oxygen Concentration - - Weight 80.2 kg (176 lb 12.9 oz) 02/26/2025 3:44 AM CDT Height 157.5 cm (5' 2) 02/24/2025 11:5 0 PM CDT Body Mass Index 32.34 02/24/2025 11:50 PM CDT Plan of Treatment Health Maintenance [...] Vaccines (1 of 2) 2017 COVID-19 Vaccine (2023-2 5 season) 2024 Meningococcal B Vaccine Aged Out No l onger eligible based on patient's age to complete this topic Meningococcal Vaccine Aged Out No no eloisa eligible based on patient's age to complete this topic RSV Immunizations Under 20 Months Aged Out No longer eligible based on patient's age to complete this topic Procedures Procedure Name Priority Date/Time Associated Diagnosis Comments BASIC METABOLIC PANEL Routine 02/26/2025 5:19 AM CDT CBC W/DIFF AUTOMATED Routine 02/26/2025 5:[address] CHEST WO CON Today 02/25/2025 10:59 AM CDT RESPIRATORY PCR PANEL 2 Routine 02/25/2025 10:03 AM CDT HEMOGLOBIN, GLYCOSYLATED Routine 02/25/2025 9:17 AM CDT HEPATIC FUNCTION PANEL Routine 9:17 AM CDT TSH W/REFLEX Routine 02/25/2025 9:17 AM CDT TROPONIN, QUANT Routine 02/25/2025 9:17 AM CDT PROCALCITONIN (PCT) Routine 02/25/2025 9 :17 AM CDT CBC W/DIFF AUTOMATED STAT 02/25/2025 9:17 AM CDT BASIC METABOLIC PANEL STAT 02/25/2025 9:[address] HEAD WO CON STAT 02/25/2025 1:22 AM CDT XR CHEST PORTABLE STAT 02/25/2025 1:2 0 AM CDT ECG 12-LEAD Routine 02/25/2025 12:48 AM CDT CORONAVIRUS (COVID 19) STAT 12:38 AM CDT INFLUENZA A & B STAT 02/25/2025 12:38 AM CDT PRO-BRAIN NATRIURETIC PEPTIDE STAT 02/25/2025 12:38 AM CDT MAGNESIUM STAT 02/25/2025 12:38 AM CDT TROPONIN, QUANT STAT 02/25/2025 12:38 AM CDT COMPREHENSIVE METABOLIC PANEL STAT 02/25/2025 12:38 AM CDT CBC W/DIFF AUTOMATED STAT 02/25/2025 12:38 AM CDT from Last 3 Months Results * (ABNORMAL) BASIC METABOLIC PANEL (02/26/2025 5:19 AM CDT) Only the most recent of2 resultswithin the time period is included. GLUCOSE 94 70 - 99 MG/DL 02/26/2025 6:17 AM CDT [facility] BUN 17 7 - 18 MG/DL 02/26/2025 6:17 AM CDT [facility] CREATININE S/P/B 0.78 0.55 - 1.02 MG/DL 02/26/2025 6:17 AM CDT [facility] SODIUM S/P/B 143 136 - 145 MMOL/L 02/26/2025 6:17 AM CDT [facility] POTASSIUM S/P/B 4.0 3.5 - 5.1 MMOL/L 02/26/2025 6:17 AM CDT [facility] CHLORIDE S/P/B 106 100 - 108 MMOL/L 02/26/2025 6:17 AM CDT [facility] CO2 29.5 21 - 32 MMOL/L 02/26/2025 6:17 AM CDT [facility] CALCIUM S/P/B 8.5 8.5 - 10.1 MG/DL 02/26/2025 6:17 AM CDT [facility] ANION GAP 7.5 5 - 15 MMOL/L 02/26/2025 6:17 AM CDT [facility] BUN CREATININE RATIO 21.8 6 - 26 02/26/2025 6:17 AM CDT [facility] GFR ESTIMATE 89(L) >90 ML/MIN/1.7 3 M2 02/26/2025 6:17 AM CDT [facility] Comment: NOTE: eGFR is not calculated for patients <18 years of age. This is an estimated GFR calculation using the new CKD EPI creatinine equation without race and so does not require a correction factor for race. This estimated GFR should not be used for calculating drug doses. 02/26/2025 5:19 AM CDT us Norah Ellington MD LABORATORY Final Result [facility] [address] [place] [address], [place] [phone] * (ABNORMAL) CBC W/DIFF AUTOMATED (02/26/2025 5:19 AM CDT) Only the most recent of3 resultswithin the time period is included. WBC 10.25 4.4 - 11.0 x10'3/uL 02/26/2025 6:30 AM CDT [facility] RBC 3.97(L) 4.50 - 5.10 x10'6/uL 02/26/2025 6:30 AM T [facility] HGB 11.9(L) 12.3 - 15.3 G/DL 02/26/2025 6:30 AM T [facility] HCT 35.8(L) 35.9 - 44.6 % 02/26/2025 6:30 AM T [facility] MCV 90.2 80.0 - 96.0 FL 02/26/2025 6:30 AM T [facility] MCH 30.0 25.3 - 30.9 PG 02/26/2025 6:30 AM T [facility] MCHC 33.2 31.0 - 34.1 G/DL 02/26/2025 6:30 AM T [facility] RDW 13.3 12.4 - 15.1 % 02/26/2025 6:30 AM T [facility] PLT 204 151 - 353 x10'3/uL 02/26/2025 6:30 AM T [facility] MPV 9.8 9.6 - 12.0 FL 02/26/2025 6:30 AM T [facility] RBC MORPHOLOGY NORMAL 02/26/2025 6:30 AM T [facility] PLT MORPH. NORMAL 02/26/2025 6:30 AM T [facility] WBC MORPHOLOGY NORMAL 02/26/2025 6:30 AM T [facility] LYMPHOCYTES % 26.7 15.8 - 45.0 % 02/26/2025 6:31 AM CDT [facility] NEUTROPHILS % 64.8 42.1 - 71.9 % 02/26/2025 6:31 AM CDT [facility] MONOCYTES % 7.7 5.7 - 12.5 % 02/26/2025 6:31 AM CDT [facility] EOSINOPHILS 0.1 0.0 - 5.6 % 02/26/2025 6:31 AM CDT [facility] BASOPHILS 0.1 0.0 - 1.3 % 02/26/2025 6:31 AM CDT [facility] ABS. NEUTROPHILS 6.64(H) 1.40 - 6.00 x10'3/uL 02/26/2025 6:31 AM CDT [facility] IMMATURE GRANS % 0.6(H) 0.0 - 0.5 % 02/26/2025 6:31 AM CDT [facility] ABS. LYMPHOCYTES 2.74 0.80 - 4.70 x10'3/uL 02/26/2025 6:31 AM CDT [facility] 02/26/2025 5:19 AM CDT Norah Ellington MD LABORATORY Final Result [facility] [address] [place] [address], * CT CHEST WO CON (02/25/2025 10:59 AM CDT) Anatomical Region Laterality Modality Chest Computed Tomogra phy 02/25/2025 11:5 3 PM CDT Impressions 02/25/2025 11:58 PM CDT IMPRESSION: 1. Few foci of tree-in-bud nodularity in the right lower lobe with minimal groundglass opacity that could reflect infectious bronchiolitis in the appropriate clinical context. 2. Mild pulmonary emphysema. 3. Scattered tiny pulmonary nodules in both lungs measuring up to 4 mm. Per Fleischner guidelines, a follow-up chest CT could be considered in 12 months to assess for persistence/change. Referred By: Interpreted By: Lan Henriquez DO, 02/25/2025 11:53 PM Narrative 02/25/2025 11:58 PM CDT [facility] [address] [place] [id number] Examination: CT CHEST WO CON Exam time: 02/25/2025 10:58 AM Clinical history: Chronic obstructive pulmonary disease, cough, and shortness of breath. Concern for chronic obstructive pulmonary disease exacerbation. Comparison: Chest radiographs 02/25/2025, 10/10/2017, and 10/02/2016. Technique: Axial unenhanced CT of the chest was performed. Coronal and sagittal reformatted images were obtained and reviewed. A radiation dose lowering technique was used for this procedure, which may include, but is not limited to, dose reduction technique, automated exposure control, the use of iterative reconstruction, ALARA (As Low As Reasonably Achievable) techniques, and Image Gently techniques. Findings: The heart is normal in size without pericardial effusion. The thoracic aorta is normal in caliber. There is no mediastinal adenopathy or fluid collection. There is no internal mammary chain, axillary, or supraclavicular adenopathy. There is no pleural effusion or pneumothorax. There is mild pulmonary emphysema. There are a few foci of tree-in-bud nodularity in the right lower lobe with minimal groundglass opacity that could reflect infectious bronchiolitis in the appropriate clinical context. There are scattered tiny pulmonary nodules in both lungs, the largest of which measures approximately 4 mm. There is no focal pulmonary consolidation The gallbladder is surgically absent. A tiny splenunculus is noted. Moderate degenerative disc disease affects L1-2. Procedure Note Lan Henriquez DO - 02/26/2025 [facility] [address] [place] [id number] Examination: CT CHEST WO CON Exam time: 02/25/2025 10:58 AM Clinical history: Chronic obstructive pulmonary disease, cough, andshortness of breath. Concern for chronic obstructive pulmonary diseaseexacerbation. Comparison: Chest radiographs 02/25/2025, 10/10/2017, and 10/02/2016. Technique: Axial unenhanced CT of the chest was performed. Coronal andsagittal reformatted images were obtained and reviewed. A radiation doselowering technique was used for this procedure, which may include, but isnot limited to, dose reduction technique, automated exposure control, theuse of iterative reconstruction, ALARA (As Low As Reasonably Achievable)techniques, and Image Gently techniques. Findings: The heart is normal in size without pericardial effusion. The thoracicaorta is normal in caliber. There is no mediastinal adenopathy or fluidcollection. There is no internal mammary chain, axillary, orsupraclavicular adenopathy. There is no pleural effusion or pneumothorax. There is mild pulmonary emphysema. There are a few foci of njoa-nd-tmhpvhdrztifh in the right lower lobe with minimal groundglass opacity thatcould reflect infectious bronchiolitis in the appropriate clinicalcontext. There are scattered tiny pulmonary nodules in both lungs, thelargest of which measures approximately 4 mm. There is no focal pulmonaryconsolidation The gallbladder is surgically absent. A tiny splenunculus is noted. Moderate degenerative disc disease affects L1-2. IMPRESSION: 1. Few foci of tree-in-bud nodularity in the right lower lobe withminimal groundglass opacity that could reflect infectious bronchiolitis inthe appropriate clinical context. 2. Mild pulmonary emphysema. 3. Scattered tiny pulmonary nodules in both lungs measuring up to 4 mm.Per Fleischner guidelines, a follow-up chest CT could be considered in 12months to assess for persistence/change. Referred By: Interpreted By: Lan Henriquez DO, 02/25/2025 11:53 PM us Cecile Boo APNP CT Final Res ult * (ABNORMAL) RESPIRATORY PCR PANEL 2 (02/25/2025 10:03 AM CDT) ADENOVIRUS PCR (RESP) NOT DETECTED NOT DETECTED 02/25/2025 1:10 PM CDT [facility] CORONAVIRUS 229E PCR (RESP) NOT DETECTED NOT DETECTED 02/25/2025 1:10 PM CDT [facility] CORONAVIRUS HKU1 PCR (RESP) NOT DETECTED NOT DETECTED 02/25/2025 1:10 PM CDT [facility] CORONAVIRUS NL63 PCR (RESP) NOT DETECTED NOT DETECTED 02/25/2025 1:10 PM CDT [facility] CORONAVIRUS OC43 PCR (RESP) NOT DETECTED NOT DETECTED 02/25/2025 1:10 PM CDT [facility] METAPNEUMOVIRUS PCR (RESP) NOT DETECTED NOT DETECTED 02/25/2025 1:10 PM CDT [facility] RHINOVIRUS/ENTEROV IRUS PCR (RESP) NOT DETECTED NOT DETECTED 02/25/2025 1:10 PM CDT [facility] INFLUENZA A/H1-2009 PCR (RESP) DETECTED(A) NOT DETECTED 02/25/2025 1:10 PM CDT [facility] INFLUENZA B PCR (RESP) NOT DETECTED NOT DETECTED 02/25/2025 1:10 PM CDT [facility] PARAINFLUENZA 1 PCR (RESP) NOT DETECTED NOT DETECTED 02/25/2025 1:10 PM CDT [facility] PARAINFLUENZA 2 PCR (RESP) NOT DETECTED NOT DETECTED 02/25/2025 1:10 PM CDT [facility] PARAINFLUENZA 3 PCR (RESP) NOT DETECTED NOT DETECTED 02/25/2025 1:10 PM CDT [facility] PARAINFLUENZA 4 PCR (RESP) NOT DETECTED NOT DETECTED 02/25/2025 1:10 PM CDT [facility] RSV PCR (RESP) NOT DETECTED NOT DETECTED 02/25/2025 1:10 PM CDT [facility] B PARAPERTUSIS PCR (RESP) NOT DETECTED NOT DETECTED 02/25/2025 1:10 PM CDT [facility] BORDETELLA PERTUSSIS PCR (RESP) NOT DETECTED NOT DETECTED 02/25/2025 1:10 PM CDT [facility] CHLAMYDOPHILA PNEUMONIAE PCR (RESP) NOT DETECTED NOT DETECTED 02/25/2025 1:10 PM CDT [facility] MYCOPLASMA PNEUMONIAE PCR (RESP) NOT DETECTED NOT DETECTED 02/25/2025 1:10 PM CDT [facility] CORONAVIRUS SARS COV 2 PCR (RESP) NOT DETECTED NOT DETECTED 02/25/2025 1:10 PM CDT [facility] NASOPHARYNGEAL SWAB / Unknown 02/25/2025 10:03 AM CDT Cecile Boo APNP MICROBIOLOGY - GENERAL OR DERABLES Final Result [facility] [address] [place] [address], * PROCALCITONIN (PCT) (02/25/2025 9:17 AM CDT) PROCALCITONIN <0.05 0.00 - 0.25 NG/ML 02/25/2025 10:13 AM CDT [facility] Comment: PROCALCITONIN INTERPRETATION GUIDELINES LOWER RESPIRATORY TRACT INFECTIONS (LRTI): USE OF PCT IN INPATIENT OR EMERGENCY SITUATION INITIATION OF ANTIBIOTICS PCT VALUE INTERPRETATION <0.10 NG/ML ANTIBIOTIC THERAPY STRONGLY DISCOURAGED. 0.10-0.25 NG/ML ANTIBIOTIC THERAPY DISCOURAGED. 0.26-0.50 NG/ML ANTIBIOTIC THERAPY ENCOURAGED. >0.50 NG/ML ANTIBIOTIC THERAPY STRONGLY ENCOURAGED. DISCONTINUE ANTIBIOTICS PCT LESS THAN OR EQUAL TO 0.25 NG/ML OR DELTA PCT >80 PERCENT DELTA PCT= PCT(PEAK)-PCT(CURRENT)/PCT(PEAK)X100% STUDIES HAVE EVALUATED PCT PROTOCOLS IN THESE PATIENTS AND FOUND THAT FOR PATIENTS WHO ARE CLINICALLY STABLE AND ARE TREATED AT THE ED OR ARE HOSPITALIZED, THE INITIATION OF ANTIBIOTIC THERAPY SHOULD BE BASED ON CLINICAL GROUNDS AND A PCT VALUE OF GREATER THAN OR EQUAL TO 0.26 NG/ML. IF PCT REMAINS LOWER, ANTIBIOTICS CAN BE WITHHELD AND PATIENTS CAN BE REASSESSED CLINICALLY WITHOUT SAFETY CONCERNS. IF PATIENTS ARE CLINICALLY STABLE, AN ALTERNATIVE DIAGNOSIS SHOULD BE CONSIDERED. IF PATIENTS ARE UNSTABLE, THEN ANTIBIOTICS MAY BE CONSIDERED. IF PATIENTS DO NOT IMPROVE IN THE SHORT FOLLOW UP PERIOD OF 6 TO 12 HOURS, CLINICAL RE-EVALUATION AND RE-MEASUREMENT OF PCT IS RECOMMENDED. 02/25/2025 9:17 AM CDT Cecile Morris Boo [facility] Final Res ult Performing Organization Address [facility]/ZIP Co de Phone Number [facility] [address] [place] [address], [place] [phone] * TSH W/REFLEX (02/25/2025 9:17 AM CDT) TSH 0.414 0.358 - 3.74 uIU/ML 02/25/2025 10:36 AM CDT [facility] Comment: HIGH DOSES OF BIOTIN MAY INTERFERE WITH THIS TEST RESULT. CORRELATION TO CLINICAL HISTORY AND PRESENTATION RECOMMENDED. FREE T4 NOT INDICATED 02/25/2025 9:17 AM CDT Cecile Morris Boo [facility] Final Res ult Performing Organization Address [facility]/ZIP Co de Phone Number [facility] [address] [place] [address], [place] [phone] * HEMOGLOBIN, GLYCOSYLATED (02/25/2025 9:17 AM CDT) HGB A1C 5.5 <5.7 % 02/25/2025 12:45 PM CDT [facility] Comment: INCREASED RISK OF DIABETES <5.7% NON-DIABETES 5.7-6.4% INCREASED RISK FOR FUTURE DIABETES > OR = 6.5 CONSISTENT WITH DIABETES STANDARDS OF MEDICAL CARE IN DIABETES-2010 DIABETES CARE, 33(SUPP 1): S1-S61,2010 ESTIMATED AVG GLUCOSE 111 mg/dL 02/25/2025 12:45 PM CDT [facility] 02/25/2025 9:17 AM CDT Cecile Boo APNP LABORATORY Final Res ult [facility] [address] [place] [address], * (ABNORMAL) HEPATIC FUNCTION PANEL (02/25/2025 9:17 AM CDT) TOTAL PROTEIN S/P/B 7.5 6.4 - 8.2 G/DL 02/25/2025 12:34 PM T [facility] ALBUMIN S/P/B 3.8 3.4 - 5.0 G/DL 02/25/2025 12:34 PM T [facility] BILIRUBIN TOTAL S/P/B 0.3 0.2 - 1.2 MG/DL 02/25/2025 12:34 PM T [facility] BILIRUBIN DIRECT S/P/B <0.1 0.0 - 0.20 MG/DL 02/25/2025 12:34 PM T [facility] BILIRUBIN INDIRECT S/P/B 0.3 0.0 - 0.9 MG/DL 02/25/2025 12:34 PM T [facility] ALKALINE PHOSPHATASE S/P/B 92 50 - 136 U/L 02/25/2025 12:34 PM T [facility] AST 52(H) 15 - 37 U/L 02/25/2025 12:34 PM T [facility] ALT 48 14 - 55 U/L 02/25/2025 12:34 PM CDT [facility] A/G RATIO 1.0 1.0 - 2.0 RATIO 02/25/2025 12:34 PM CDT [facility] 02/25/2025 9:17 AM CDT Cecile Boo [facility] Final Res ult Performing Organization Address City/[facility]/ZIP Co de Phone Number [facility] [address] [place] [address], [place] [phone] * TROPONIN, QUANT (02/25/2025 9:17 AM CDT) Only the most recent of2 resultswithin the time period is included. TROPONIN I HIGH SENSITIVITY 11 0 - 50 ng/L 02/25/2025 9:57 AM CDT [facility] Comment: HIGH DOSES OF BIOTIN, TROPONIN-SPECIFIC AUTOANTIBODIES, AND ANTIBODY THERAPY CONTAINING HAMA MAY INTERFERE WITH THIS TEST RESULT. CORRELATION TO CLINICAL HISTORY AND PRESENTATION RECOMMENDED. 02/25/2025 9:17 AM CDT Cecile Boo [facility] Final Res ult Performing Organization Address [facility] Co de Phone Number [facility] [address] [place] [address], [place] [phone] * CT HEAD WO CON (02/25/2025 1:22 AM CDT) Anatomical Region Laterality Modality Head Computed Tomogra phy 02/25/2025 1:34 AM CDT Impressions 02/25/2025 1:36 AM CDT IMPRESSION: 1. No acute intracranial abnormality. Referred By: Interpreted By: Veronica Lamar MD, 02/25/2025 1:34 AM Narrative 02/25/2025 1:36 AM CDT [facility] [address] [place] [address] EXAMINATION: CT Head without Contrast, Axial Imaging with 2-D Coronal and Sagittal Reconstruction. This CT exam was performed using one or more of the following dose reduction techniques: automated exposure control, adjustment of the mA and/or kV according to patient size, the use of iterative reconstruction technique, use of ALARA (As Low As Reasonably Achievable) and/or use of Image Gently techniques. INDICATION: Left headache after coughing COMPARISON: None. FINDINGS: No mass, midline shift, intracranial hemorrhage, areas of acute macrovascular ischemia, or acute osseous abnormality. No extra-axial fluid collections. Ventricles and sulci are normal for age. Normal perry-white differentiation is maintained. Visualized orbits are unremarkable. No significant disease in the partially visualized paranasal sinuses or mastoid air cells. Procedure Note Veronica Lamar MD - 02/25/2025 [facility] [address] [place] [address] EXAMINATION: CT Head without Contrast, Axial Imaging with 2-D Coronal andSagittal Reconstruction. This CT exam was performed using one or more of the following dosereduction techniques: automated exposure control, adjustment of the mAand/or kV according to patient size, the use of iterative reconstructiontechnique, use of ALARA (As Low As Reasonably Achievable) and/or use ofImage Gently techniques. INDICATION: Left headache after coughing COMPARISON: None. FINDINGS: No mass, midline shift, intracranial hemorrhage, areas of acutemacrovascular ischemia, or acute osseous abnormality. No extra-axial fluidcollections. Ventricles and sulci are normal for age. Normal perry-whitedifferentiation is maintained. Visualized orbits are unremarkable. Nosignificant disease in the partially visualized paranasal sinuses ormastoid air cells. IMPRESSION: 1. No acute intracranial abnormality. Referred By: Interpreted By: Veronica Lamar MD, 02/25/2025 1:34 AM Aaliyah Ramirez MD CT Final Result * XR CHEST PORTABLE (02/25/2025 1:20 AM CDT) Anatomical Region Laterality Modality Chest Radiographic Cary ging 02/25/2025 1:36 AM CDT Impressions 02/25/2025 1:38 AM CDT IMPRESSION: 1. No significant change, and no acute pulmonary disease. Referred By: Interpreted By: Veronica Lamar MD, 02/25/2025 1:36 AM Narrative 02/25/2025 1:38 AM CDT [facility] [address] [place] [address] EXAMINATION: XR Portable CXR, 1 View INDICATION: Wheezing b/l, SOB, cough COMPARISON: PA and lateral chest x-ray 10/10/2017. FINDINGS: The cardiomediastinal silhouette is within normal limits. Pulmonary vascularity is normal. No acute infiltrate, consolidation, pneumothorax, or pleural effusion. No acute osseous abnormality. Procedure Note Veronica Lamar MD - 02/25/2025 [facility] [address] [place] [address] EXAMINATION: XR Portable CXR, 1 View INDICATION: Wheezing b/l, SOB, cough COMPARISON: PA and lateral chest x-ray 10/10/2017. FINDINGS: The cardiomediastinal silhouette is within normal limits. Pulmonaryvascularity is normal. No acute infiltrate, consolidation, pneumothorax,or pleural effusion. No acute osseous abnormality. IMPRESSION: 1. No significant change, and no acute pulmonary disease. Referred By: Interpreted By: Veronica Lamar MD, 02/25/2025 1:36 AM us Aaliyah Ramirez MD GENERAL IMAGING Final Result * ECG 12 lead (02/25/2025 12:48 AM CDT) 02/25/2025 12:4 8 AM CDT Narrative [facility] ([facility]) RAD - 02/25/2025 8:50 AM CDT [facility] Test Date: 2025-02-25 Pat Name: BLANCA RENTERIA Department: 85 Room: 124 Gender: Female Teletype Operator: : [id number] Requested By: AALIYAH RAMIREZ Order Number: [id number] Reading MD: Mehran Jones Measurements Intervals [place] Rate: 64 P: 46 ME: 137 QRS: 76 QRSD: 94 T: 63 QT: 419 QTc: 434 Interpretive Statements SINUS RHYTHM POSSIBLE RIGHT VENTRICULAR CONDUCTION DELAY [RSR (QR) IN V1/V2] MODERATE ST DEPRESSION [0.05+ mV ST DEPRESSION] No previous ECG available for comparison Procedure Note Mehran Jones MD - 02/25/2025 [facility] Test Date: 2025-02-25 Pat Name: BLANCA RENTERIA Department: 85 Room: 124 Gender: Female Teletype Operator: : [id number] Requested By: AALIYAH RAMIREZ Order Number: [id number] Reading : Mehran Jones Measurements Intervals [place] Rate: 64 P: 46 ME: 137 QRS: 76 QRSD: 94 T: 63 QT: 419 QTc: 434 Interpretive Statements SINUS RHYTHM POSSIBLE RIGHT VENTRICULAR CONDUCTION DELAY [RSR (QR) IN V1/V2] MODERATE ST DEPRESSION [0.05+ mV ST DEPRESSION] No previous ECG available for comparison us Aaliyah Ramirez MD ECG ORDERABLES Final Result [facility] ([facility]) RAD * CORONAVIRUS (COVID-19) MOLECULAR (02/25/2025 12:38 AM CDT) CORONAVIRUS SARS COV 2 RNA NEGATIVE NEGATIVE 02/25/2025 1:30 AM CDT [facility] Comment: NEGATIVE RESULTS DO NOT RULE OUT COVID 19 AND SHOULD NOT BE USED THE SOLE BASIS FOR TREATMENT OR PATIENT MANAGEMENT DECISIONS, INCLUDING INFECTION CONTROL DECISIONS. NEGATIVE RESULTS SHOULD BE CONSIDERED IN THE CONTEXT OF A PATIENT'S RECENT EXPOSURES, HISTORY AND THE PRESENCE OF CLINICAL SIGNS AND SYMPTOMS CONSISTENT WITH COVID 19. THE ID NOW COVID-19 2.0 TEST HAS BEEN AUTHORIZED BY THE FDA UNDER EAU FOR USE BY AUTHORIZED LABORATORIES. PERFORMED BY NUCLEIC ACID AMPLIFICATION FOR MOLECULAR QUALITATIVE DETECTION OF SARS-COV-2. SPECIMEN TYPE NASAL 02/25/2025 12:38 AM CDT [facility] NASOPHARYNGEAL SWAB / Unknown 02/25/2025 12:38 AM CDT us Aaliyah Ramirez MD MICROBIOLOGY - GENERAL ORDERAB LES Final Result [facility] [address] [place] [address], * (ABNORMAL) PRO-BRAIN NATRIURETIC PEPTIDE (02/25/2025 12:38 AM CDT) PRO-B TYPE NATRIURETIC PEPTIDE 131(H) <125 PG/ML 02/25/2025 1:16 AM CDT [facility] Comment: CUT POINTS ESTABLISHED BY INTERNATIONAL COLL[employer]ATIVE ON NT PROBNP (ICON) STUDY (2006). AGE INDEPENDENT: <300 PG/ML HAS A 99% NEGATIVE PREDICTIVE VALUE FOR EXCLUDING ACUTE CHF <50 YEARS: >450 PG/ML IS CONSISTENT WITH ACUTE CHF 50-75 YEARS: >900 PG/ML IS CONSISTENT WITH ACUTE CHF >75 YEARS: >1800 PG/ML IS CONSISTENT WITH ACUTE CHF IN PATIENTS WITH RENAL INSUFFICIENCY (GFR <60), >1200 PG/ML YIELDS A DIAGNOSTIC SENSITIVITY AND SPECIFICITY OF 89% AND 72% FOR ACUTE CHF. 02/25/2025 12:3 8 AM CDT us Aaliyah Ramirez MD LABORATORY Final Result [facility] [address] [place] [address], [place] [phone] * INFLUENZA A & B (02/25/2025 12:38 AM CDT) SPECIMEN TYPE NASOPHARYNX 02/25/2025 1:26 AM CDT [facility] INFLUENZA A NEGATIVE NEGATIVE 02/25/2025 1:26 AM CDT [facility] INFLUENZA B NEGATIVE NEGATIVE 02/25/2025 1:26 AM CDT [facility] NASAL NASOPHARYNGEAL SWAB / Unknown 02/25/2025 12:38 AM CDT us Aaliyah Ramirez MD MICROBIOLOGY - GENERAL ORDERAB LES Final Result [facility] [address] [place] [address], [place] [phone] * (ABNORMAL) COMPREHENSIVE METABOLIC PANEL (02/25/2025 12:38 AM CDT) GLUCOSE 139(H) 70 - 99 MG/DL 02/25/2025 1:16 AM CDT [facility] BUN 18 7 - 18 MG/DL 02/25/2025 1:16 AM CDT [facility] CREATININE S/P/B 0.95 0.55 - 1.02 MG/DL 02/25/2025 1:16 AM CDT [facility] SODIUM S/P/B 140 136 - 145 MMOL/L 02/25/2025 1:16 AM CDT [facility] POTASSIUM S/P/B 4.2 3.5 - 5.1 MMOL/L 02/25/2025 1:16 AM CDT [facility] CHLORIDE S/P/B 103 100 - 108 MMOL/L 02/25/2025 1:16 AM [facility] CO2 29.1 21 - 32 MMOL/L 02/25/2025 1:16 AM [facility] CALCIUM S/P/B 9.2 8.5 - 10.1 MG/DL 02/25/2025 1:16 AM [facility] BILIRUBIN TOTAL S/P/B 0.4 0.2 - 1.2 MG/DL 02/25/2025 1:16 AM [facility] TOTAL PROTEIN S/P/B 7.3 6.4 - 8.2 G/DL 02/25/2025 1:16 AM [facility] ALBUMIN S/P/B 3.7 3.4 - 5.0 G/DL 02/25/2025 1:16 AM [facility] AST 57(H) 15 - 37 U/L 02/25/2025 1:16 AM [facility] ALT 56(H) 14 - 55 U/L 02/25/2025 1:16 AM [facility] ALKALINE PHOSPHATASE S/P/B 92 50 - 136 U/L 02/25/2025 1:16 AM [facility] ANION GAP 7.9 5 - 15 MMOL/L 02/25/2025 1:16 AM [facility] BUN CREATININE RATIO 18.9 6 - 26 02/25/2025 1:16 AM [facility] A/G RATIO 1.0 1.0 - 2.0 RATIO 02/25/2025 1:16 AM [facility] GFR ESTIMATE 70(L) >90 ML/MIN/1.7 3 M2 02/25/2025 1:16 AM [facility] Comment: NOTE: eGFR is not calculated for patients <18 years of age. This is an estimated GFR calculation using the new CKD EPI creatinine equation without race and so does not require a correction factor for race. This estimated GFR should not be used for calculating drug doses. 02/25/2025 12:3 8 AM CDT us Aaliyah Ramirez MD LABORATORY Final Result Performing Organization Address [facility]/ZIP Co de Phone Number [facility] [address] [place] [address], [place] [phone] * MAGNESIUM (02/25/2025 12:38 AM CDT) MAGNESIUM 1.9 1.8 - 2.4 MG/DL 02/25/2025 1:16 AM CDT [facility] 02/25/2025 12:3 8 AM CDT Aaliyah Ramirez MD LABORATORY Final Result Performing Organization Address [facility] de Phone Number [facility] [address] [place] [address], [place] [phone] from Last 3 Months Insurance UMR Advance Directives * Full Code (Latest Code Status on File) Date Activated Date Inactivated Comments 02/25/2025 12:00 PM 02/26/2025 2:34 PM Care Teams Applied Statistician Relationship Specialty Start Date End Date Riri Fernandez NP [address] [facility] [address] [place] [address] [phone] PCP - General Nurse Practitioner Family 02/24/25
--- NOTE | 2025-05-08 16:42 | WPDPFTINT ---
PFT Procedure Performed PFT Procedure Performed Spirometry with Pre/Post Bronchodilator Plethysmography (Lung Vol) Diffusing Cap (DLCO) Flow Vol Loop PFT Interpretation This is a pulmonary function test with pre and post-bronchodilator spirometry, plethysmography and diffusing capacity. The test was performed and results interpreted in accordance with the 2019 and 2005 ATS/ERS Task Force guidelines respectively using the Global Lung Function Initiative-2012 reference equations. Patient demonstrated good effort and cooperation. Reproducibility criteria were met. The quality of the pre bronchodilator spirometry maneuver was Grade A and post bronchodilator spirometry maneuver was Grade A. Findings: Spirometry: The contour the inspiratory and expiratory flow tracing are normal. The pre bronchodilator FVC is 2.82 L, 94% predicted. The pre bronchodilator FEV1 is 2.27 L, 95% predicted. The pre bronchodilator FEV1: FVC ratio is 81%. The post bronchodilator FVC is 2.58 L, representing an 8% decrease. The post bronchodilator FEV1 is 2.04 L, representing a 10% decrease. The post bronchodilator FEV1: FVC ratio 79%. Plethysmography: The total lung capacity is 4.66 L, 98% predicted. The functional residual capacity is 2.29 L, 86% predicted. The residual volume is 1.84 L, 101% predicted. Diffusing capacity: The diffusing capacity unadjusted for hemoglobin and carboxyhemoglobin is 18.4, 87% predicted. The diffusing capacity adjusted for alveolar volume is 4.71, 103% predicted. Impression: The spirometry is normal without evidence of an obstructive abnormality. There is no significant improvement after inhaling a single dose of albuterol. The lung volumes are normal. The diffusing capacity is normal. There are no prior studies for comparison
== END 2025-05-08 14:32 | disposition home or self-care (01) ==
PROVIDERS: PCP Nurse Practitioner Family; Visit Provider Nurse Practitioner Family
DX: J44.9 Chronic obstructive pulmonary disease, unspecified (principal)
CPT/HCPCS: 94060; 94726; 94729

== ENCOUNTER 2025-06-15 09:49 | Emergency (ER) | payer OTHER, SELFPAY ==
--- NOTE | ~2025-06-15 | US_ITS ---
EXAMINATION: US venous doppler [facility] DATE: 06/15/2025 11:17 INDICATION: Deep venous thrombosis TECHNIQUE: Grayscale ultrasound images without and with compression and Doppler ultrasound images of the left lower extremity veins were obtained. COMPARISON: None. FINDINGS: The visualized portions of left common femoral vein, profunda (deep) femoral vein, femoral vein, popliteal vein, peroneal veins, posterior tibial veins, gastrocnemius vein and greater saphenous vein outflow are patent. IMPRESSION: 1. No deep venous thrombosis in the left lower limb. Reviewed, dictated and finalized at location A.
[2025-06-15 10:00] VITALS: BP 119/53; PULSE 90; RESP 18; TEMP 36.6; O2SAT 95
--- NOTE | 2025-06-15 10:00 | ED.EXTPRO ---
HPI - Extremity Problem General Chief complaint: Extremity Problem,Nontraumatic Stated complaint: possible DVT left leg Time Seen by Provider: 06/15/25 09:59 Source: patient Mode of arrival: ambulatory Limitations: no limitations History of Present Illness HPI Narrative: LEFT LOWER LEG PAIN STARTED 2 WEEKS AGO, NO TRAUMA. PATIENT IS TELLING ME SHE BUMPED INTO FOR NATURE OVER TIME. SHE DENIES ANY CHEST PAIN OR SHORTNESS OF BREATH OR FEVER OR CHILLS OR NAUSEA OR VOMITING. Related Data Home Medications ?Medication ?Instructions ?Recorded ?Confirmed ?Last Taken ?Type cetirizine 10 mg tablet (Zyrtec) 10 mg PO DAILY PRN 01/31/25 03/16/25 Unknown History Allergies Allergy/AdvReac Type Severity Reaction Status Date / Time lorcaserin (Belviq) Allergy Unknown intolerant Verified 06/15/25 10:04 Review of Systems Review of Systems: All systems reviewed & are unremarkable except as noted in HPI and below PMFSH Past Medical History Medical History Reactive airway disease Migraine headache Pelvic pain Obstructive sleep apnea Lesion of nasal septum Insomnia, unspecified Broken arm Surgical History Surgical History Hx of cholecystectomy Family History Family History Father Family history of chronic obstructive pulmonary disease Other Diabetes mellitus Family history of cardiovascular disease Family history of malignant neoplasm of skin Social History Social History Social History: caffeine 1 cup coffee daily Smoking status: Former smoker Alcohol intake: former Substance use: never Substance use type: does not use Lack of Transportation: No Lack of Food: Never True Current Housing: I Have Housing Concerned About Future Housing: No Difficulty Paying Gas/Electric Bills: No Difficulty Paying for Meds: No Currently Unemployed: No Education: High School Diploma/GED Difficulty w/ Childcare or Family Care: No Occupation/Education: occupation Gender identity (if verbalized by the patient): Female Sexual Orientation (if Verbalized by the Patient): Straight or Heterosexual Exam Narrative: GENERAL APPEARANCE: WELL-DEVELOPED, WELL-NOURISHED SKIN: NORMAL COLOR HEAD: NORMOCEPHALIC, NONTRAUMATIC EYES: CLEAR CONJUNCTIVA ENT: OROPHARYNX NORMAL, EARS NORMAL, NOSE NORMAL NECK: SUPPLE, NONTENDER CHEST AND RESPIRATORY: AIRWAY PATENT, NO RESPIRATORY DISTRESS, NO ACCESSORY MUSCLE USE HEART: REGULAR RATE/RHYTHM ABDOMEN: SOFT, NONTENDER, NO ORGANOMEGALY, QUIET BOWEL SOUNDS VASCULAR: NORMAL PERIPHERAL PULSES, NORMAL CAPILLARY REFILL. MUSCULOSKELETAL: LEFT LOWER LEG SHOWING SLIGHT DIFFUSE TENDERNESS AT THE CALF MUSCLES, BRUISES DISTALLY. NO SWELLING, NO COLD OR WARM FEELING, PALPABLE PEDAL PULSE NEUROLOGIC: ALERT AND ORIENTED ?3, DIRECTOR PEOPLESOFT IS NORMAL TESTED, NO GROSS MOTOR DEFICIT Course Vital Signs Vital signs: Vital Signs Temperature 36.6 C 06/15/25 10:00 Pulse Rate 90 06/15/25 10:00 Respiratory Rate 18 06/15/25 10:00 Blood Pressure 119/53 L 06/15/25 10:00 Pulse Oximetry 95 06/15/25 10:00 Oxygen Delivery Room Air 06/15/25 10:00 Temperature 36.6 C 06/15/25 10:00 Pulse Rate 90 06/15/25 10:00 Respiratory Rate 18 06/15/25 10:00 Blood Pressure 119/53 L 06/15/25 10:00 Pulse Oximetry 95 06/15/25 10:00 Oxygen Delivery Room Air 06/15/25 10:00 MDM - Extremity (Nontraumatic) MDM Narrative Medical decision making narrative: CONTUSION VERSUS DEEP VEIN THROMBOSIS ULTRASOUND SHOWED NO BLOOD CLOT CONDITION IS MY CONCERN. Imaging Data Radiologist's impression: Impressions Venous Doppler Study 06/15/25 11:21 IMPRESSION: 1. No deep venous thrombosis in the left lower limb. Critical Care Time Critical Care Time Critical Care Time: No Discharge Plan Discharge Clinical Impression: Acute leg pain Patient Disposition: Home Condition: Stable Instructions: Leg Pain (ED) Additional Instructions: RETURN IF SYMPTOMS ARE WORSENING , CALL YOUR FAMILY PHYSICIAN FOR APPOINTMENT, TAKE TYLENOL, IBUPROFEN NEEDED FOR ACHES AND PAIN, CONTINUE HOME MEDICATIONS. KEEP LEFT LEG ELEVATED Patient Language: Northern Irish Prescriptions: No Action propranolol 20 mg tablet 20 mg PO .COMPLEX PRN (Reason: anxiety) Qty: 120 0RF Rx Instructions: maximum 60 mg per dose up to four times per day as needed sertraline 100 mg tablet 100 mg PO DAILY Qty: 90 1RF Prempro 0.45-1.5 mg tablet See Rx Instructions .ROUTE .COMPLEX Qty: 28 4RF Dose Instruction: TAKE 1 TABLET BY MOUTH DAILY Rx Instructions: TAKE 1 TABLET BY MOUTH DAILY eszopiclone [Lunesta] 3 mg tablet 3 mg PO QHS Qty: 30 5RF cetirizine [Zyrtec] 10 mg tablet 10 mg PO DAILY PRN ipratropium-albuterol 0.5 mg-3 mg(2.5 mg base)/3 mL solution for nebulization 3 ml inhalation Q4H PRN (Reason: shortness of breath or wheezing) Qty: 90 0RF albuterol sulfate [Ventolin HFA] 90 mcg/actuation HFA aerosol inhaler 2 inh inhalation Q4H PRN (Reason: shortness of breath or wheezing) Qty: 8.5 0RF pantoprazole 40 mg tablet,delayed release (DR/EC) 40 mg PO DAILY Qty: 90 1RF ibuprofen 600 mg tablet See Rx Instructions .ROUTE .COMPLEX Qty: 40 0RF Dose Instruction: TAKE 1 TABLET BY MOUTH THREE TIMES DAILY NEEDED FOR PAIN Rx Instructions: TAKE 1 TABLET BY MOUTH THREE TIMES DAILY NEEDED FOR PAIN Trelegy Ellipta 100-62.5-25 mcg blister with device 1 inh inhalation DAILY Qty: 60 2RF trazodone 50 mg tablet See Rx Instructions .ROUTE .COMPLEX Qty: 60 0RF Dose Instruction: TAKE 2 TABLETS BY MOUTH EVERY DAY AT BEDTIME Rx Instructions: TAKE 2 TABLETS BY MOUTH EVERY DAY AT BEDTIME Follow-up/Referrals: Riri Fernandez APRN [Primary Care Provider, Internal Medicine]
--- OUTSIDE RECORDS SUMMARY | 2025-06-15 10:26 | XMS_ITS | Clinical Summary ---
Author Organization [facility] Address [facility] [place] [address] Care Team Providers Care Roto Gravure Press Operator Name Role Phone Riri Fernandez NP Primary Care Provider [phone] Allergies No known active allergies Medications PREMPRO [...] Noted Date Diagnosed Date Acute respiratory failure ([facility]) 02/02 Closed displaced fracture of fifth metatarsal [...] Used Date Smoking Tobacco: Former Cigarettes 0.5 15.7 S tarted: 2009 Smokeless Tobacco: Never Tobacco Cessation:Counseling Given: Not Answered Alcohol Use Standard Drinks/Week Comments Yes 0 (1 standard drink = 0.6 oz pur e alcohol) socially B1300 Health Literacy Answer Date Recor ded How often do you need to hav e someone help you when you read instructions, pamphlets, or other written material from your doctor or pharmacy? Never 02/25/2025 [employer] Answer Date Recorded In the past 12 months has e [employer], oil, or water [employer] threatened to shut off services in your [...] week 02/25/2025 How often do you attend [facility] or taoist services? More than 4 times per year 02/25/2025 Do you belong to any clubs o r organizations such as gnosticist groups, unions, fraternal or athletic groups, or [...] and heating? Not hard at all 02/25/2025 [facility] - Occupational Stress [...] any time in the past 12 m [facility], were you homeless or living in a snf (including now)? No 02/25/2025 Comments No Sex [...] COVID-19 Vaccine (1 - 2023-2 5 season) 2025 Meningococcal B Vaccine Aged Out No l onger eligible based on patient's age to complete this topic Meningococcal Vaccine Aged Out No no eloisa eligible based on patient's age to complete this topic RSV Immunizations Under 20 Months Aged Out No longer eligible based on patient's age to complete this topic Insurance UMR Advance Directives * Full Code (Latest Code Status on File) Date Activated Date Inactivated Comments 02/25/2025 12:00 PM 02/26/2025 2:34 PM Care Teams Roto Gravure Press Operator Relationship Specialty Start Date End Date Riri Fernandez NP [address] [place] [phone] PCP - General Nurse Practitioner Family 02/24/25
--- OUTSIDE RECORDS SUMMARY | 2025-06-15 10:26 | XMS_ITS | Clinical Summary ---
Author Organization [facility] Address [address] [place] [address] Phone Care Team Providers Care Branch Operation Evaluation Manager Name Role Phone Ron Nieto Primary Care Provider [phone] Solo Loera MD Unavailable Allergies No known [...] on file Legal Sex Female 2:12 PM PRINCIPAL EXAMINER Gender Identity Not on file Sexual Orientation [...] patient's age to complete this topic Insurance [facility] CHOICE PLUS [facility] HMO/PPO Address: [address] [address] [place] [address] [facility] [place] [facility] CHOICE PLUS [facility] HMO/PPO Address: [address] [address] [place] [address] Care Teams Branch Operation Evaluation Manager Relationship Specialty Start Date End Date Ron Nieto DO PCP - General Family Medicine 03/19/23 Solo Loera MD [address] [place] [address] Family Medicine 08/14/22
--- OUTSIDE RECORDS SUMMARY | 2025-06-15 10:47 | XMS_ITS | Clinical Summary ---
Author Organization 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
--- OUTSIDE RECORDS SUMMARY | 2025-06-15 10:47 | XMS_ITS | Clinical Summary ---
Author Organization [facility] Address [facility] [place] [address] Care Team Providers Care Ukrainian Folk Arts Instructor Name Role Phone Riri Fernandez NP Primary Care Provider [phone] Allergies No known active allergies Medications PREMPRO [...] Noted Date Diagnosed Date Acute respiratory failure ([facility]) 02/02 Closed displaced fracture of fifth metatarsal [...] from your doctor or pharmacy? Never 02/25/2025 [employer] Answer Date Recorded In the past 12 months has e [employer], oil, or water [employer] threatened to shut off services in your [...] week 02/25/2025 How often do you attend [facility] or yazidism services? More than 4 times per year 02/25/2025 Do you belong to any clubs o r organizations such as synagogue groups, unions, fraternal or athletic groups, or [...] and heating? Not hard at all 02/25/2025 [facility] Occupat ional Health - Occupational Stress [...] any time in the past 12 m [facility], were you homeless or living in a longterm (including now)? No 02/25/2025 Comments No Sex [...] 12:00 PM 02/26/2025 2:34 PM Care Teams Ukrainian Folk Arts Instructor Relationship Specialty Start Date End Date Riri Fernandez NP [address] [place] [phone] PCP - General Nurse Practitioner Family 02/24/25
[2025-06-15 11:35] VITALS: BP 106/75; PULSE 85; RESP 16; O2SAT 96
== END 2025-06-15 11:36 | disposition home or self-care (01) ==
PROVIDERS: Emergency Provider Emergency Medicine; PCP Nurse Practitioner Family
DX: M79.662 Pain in left lower leg (principal)
CPT/HCPCS: 93971; 99284